=== PATIENT | male | born 1990 | race Two or more races ===

== ENCOUNTER 2025-02-28 11:52 | Inpatient (IN) | payer MEDICAID, SELFPAY ==
[2025-02-28] VITALS (8 sets, daily range): BP systolic 111–140; BP diastolic 45–82; PULSE 93–128; RESP 12–21; TEMP 36.2–39.1; O2SAT 93–100; BMI 62.4
--- NOTE | 2025-02-28 12:49 | XR_ITS ---
Examination: Tibia-Fibula, right , 2 views Technique: Tibia-fibula AP lateral 2 views Date and time of exam: February 28, 2025 1348 hours INDICATIONS: Right leg redness swelling and pain beginning 3 days ago. FINDINGS: Mild osteopenia. No fractures. No cortical bone destruction. No opaque foreign bodies IMPRESSION: No fracture or cortical bone destruction
--- NOTE | 2025-02-28 12:49 | XR_ITS ---
Examination: Duplex scan of the lower extremity, unilateral right complete Date and time of exam: February 28, 2025 1306 hours INDICATIONS: Right leg swelling and redness beginning 2 days ago Technique: Duplex scan of the extremity veins using B-mode/grayscale imaging and Doppler spectral analysis and color flow Attention is directed to internal echogenicity, compression and augmentation involving these veins, color flow assessment, spectral analysis Findings: Major deep venous structures in the extremity demonstrate normal course and caliber. There is no evidence of deep vein thrombosis. Normal color flow and spectral analysis Impression: Limited study secondary to patient's size No DVT demonstrated
--- NOTE | 2025-02-28 12:50 | PD.EDRME ---
Rapid Medical Screening Exam RME Arrival date/time: 02/28/25 11:52 34-year-old male presents to the emergency department today for complaints of right lower extremity pain and fever Chief Complaint: Fever Time Seen by Provider: 02/28/25 11:55 Vital signs: Vital Signs Temperature 102.3 F H 02/28/25 12:33 Pulse Rate 128 H 02/28/25 12:33 Respiratory Rate 21 H 02/28/25 12:33 Blood Pressure 111/54 L 02/28/25 12:33 Pulse Oximetry (%) 95 02/28/25 12:33 Oxygen Delivery Method Room Air 02/28/25 12:33
[2025-02-28] MEDS: ACETAMINOPHEN 500 MG TABLET 1000 MG PO (12:55)
[2025-02-28 13:14] LABS: Lactate (Lactic Acid) 2.6 mMol/L (0.4-2.0)
--- NOTE | 2025-02-28 13:28 | PC.NURSE ---
PT GIVEN WATER AND URINE CUP AND ASKED FOR SPECIMEN.
[2025-02-28 13:29] LABS: Basophils # (Auto) 0.1 Thou/mm3 (0.0-0.2); Basophils % (Auto) 0 % (0-2.5); Eosinophils # (Auto) 0.0 Thou/mm3 (0.0-0.5); Eosinophils % (Auto) 0 % (0-10); Hematocrit 43.4 % (41.0-53.0); Hemoglobin 14.7 g/dL (13.5-16.0); Immature Granulocytes Auto 0.32 Thou/mm3 (0.00-0.00); Lymphocytes # (Auto) 1.3 Thou/mm3 (1.0-4.8); Lymphocytes % (Auto) 5 % (10-50); Mean Corpuscular HGB Conc 33.9 g/dl (31.0-37.0); Mean Corpuscular Hemoglobin 28.9 pg (25.0-35.0); Mean Corpuscular Volume 85 fL (80-100); Monocytes # (Auto) 1.1 Thou/mm3 (0.0-0.8); Monocytes % (Auto) 4 % (0-12); Neutrophils # (Auto) 21.6 Thou/mm3 (1.8-7.7); Neutrophils % (Auto) 89 % (37-80); Nucleated Red Blood Cell # 0.00 Thou/mm3 (0.00-0.00); Nucleated Red Blood Cell % 0 /100 WBC (0); Platelet Count 185 Thou/mm3 (140-440); RDW Standard Deviation 45.8 fL (35.1-43.9); Red Blood Count 5.08 Miln/mm3 (4.50-5.90); White Blood Count 24.4 Thou/mm3 (3.8-10.6)
[2025-02-28 13:38] LABS: INR 1.2 (0.9-1.3); Partial Thromboplastin Time 25.8 Seconds (22.0-36.0); Prothrombin Time 12.7 Seconds (9.0-12.2)
[2025-02-28 13:43] LABS: Alanine Aminotransferase 33 U/L (10-49); Albumin, Serum 4.4 gm/dL (3.5-5.0); Albumin/Globulin Ratio 1.2 (1.2-2.2); Alkaline Phosphatase 59 U/L (46-116); Anion Gap 9 (7-16); Aspartate Amino Transferase 28 U/L (0-34); BUN/Creatinine Ratio 11 Ratio (12-20); Bilirubin,Total 0.6 mg/dL (0.3-1.2); Blood Urea Nitrogen 13 mg/dL (9-23); C-Reactive Protein 4.2 mg/dL (0.0-0.9); Calcium 9.5 mg/dL (8.3-10.6); Calcium (Corrected) 9.5 mg/dL (8.5-10.1); Carbon Dioxide 27.2 mMol/L (20.0-31.0); Chloride 98 mMol/L (98-107); Creatinine (Component) 1.2 mg/dL (0.6-1.3); Estimated Creatinine Clearance 158.0 mL/min (>60); Globulin 3.6 gm/dL (2.3-3.5); Glucose 98 mg/dL (74-106); Osmolality,Calculated 268 (275-295); Potassium 4.2 mMol/L (3.4-5.1); Procalcitonin 3.02 ng/ml (0.0-0.49); Sodium 134 mMol/L (136-145); Total Protein 8.0 gm/dL (5.7-8.2); eGFR > 60 See Note
--- NOTE | 2025-02-28 13:51 | XR_ITS ---
Examination: PA lateral chest 2 views TECHNIQUE: Upright PA lateral chest 2 views Date and time: February 28, 2025 1355 hours INDICATIONS: Sepsis fever shortness of breath today. FINDINGS: Normal heart size Lungs are clear. The osseous structures are intact IMPRESSION: No active disease
[2025-02-28 13:54] LABS: Sed Rate (ESR) 55 mm/hr (0-15)
[2025-02-28] MEDS: VANCOMYCIN/NS 1 GM IVPB 200 ML IV (14:25)
[2025-02-28] MEDS: PIPER/TAZO 3.375 GM PREMIX 3.375 GM/50 ML BAG IV (14:26)
[2025-02-28] MEDS: SODIUM CHLORIDE 0.9% 1000 ML 1,000 ML 999 ML IV ×2 (14:34→15:59)
--- NOTE | 2025-02-28 15:08 | PD.EDADULT ---
ED General RME/HPI General Chief complaint: Fever Stated complaint: FEVERS, PAIN FROM R) FOOT TO GROIN Time Seen by Provider: 02/28/25 11:55 Arrival date/time: 02/28/25 11:52 Limitations: no limitations RME / HPI RME / HPI narrative: 02/28/25 11:52 34-year-old male presents to the emergency department today for complaints of right lower extremity pain and fever DR. MAGALLON MAIN ED EVALUATION: 34 year old male presents to the Emergency Department accompanied by his mother with complaints of subjective fever at home as well as right lower extremity erythema and swelling. Patient states his symptoms started today. No cough, chest pain, any pain, allergies, or other symptoms at this time. PMHx: Denies any PMHx, surgeries, daily medications, or known allergies. No significant family history. Social Hx: Occasional cigarettes's smoker. No alcohol or substance use. Related Data Allergies Allergy/AdvReac Type Severity Reaction Status Date / Time No Known Allergies Allergy Verified 02/28/25 11:56 Review of Systems Review of Systems Systems Reviewed: All systems reviewed, normal except as documented Past Medical History Social History SMOKING STATUS: Current some day smoker SUBSTANCE USE: does not use ALCOHOL: Never ED Exam General Limitations: Present no limitations General appearance: Present alert, in no apparent distress and obese (BMI 62) Head Head exam: Present atraumatic, normocephalic and normal inspection Eye Eye exam: Present normal appearance, PERRL and EOMI ENT ENT exam: Present normal exam, normal oropharynx and mucous membranes moist Neck Neck exam: Present normal inspection, full ROM and trachea midline Chest Chest inspection: Present normal inspection and symmetric chest wall rise Respiratory Respiratory exam: Present normal lung sounds bilaterally Cardiovascular Cardiovascular exam: Present regular rate, normal rhythm and normal heart sounds Abdominal Exam Abdominal exam: Present soft and normal bowel sounds Extremities Exam Extremities exam: Present full ROM and other (Erythema and swelling just below the right knee, with venous stasis changes.) Back Exam Back exam: Present normal inspection and full ROM Neurological Exam Neurological exam: Present alert, oriented X3 and CN II-XII intact Psychiatric Psychiatric exam: Present normal affect and normal mood Skin Skin exam: Present warm, dry, intact and normal color Course Quality Measures Current suspected stage: sepsis Possible source: skin/soft tissue Blood cultures ordered: yes Antibiotic ordered: Yes Pertinent labs: 02/28/25 13:02 Lactic Acid 2.6 H mMol/L (0.4-2.0) Procalcitonin 3.02 H ng/ml (0.0-0.49) sepsis Orders Category Date Time Status COVID-19 Screening Questionnaire NOW Care 02/28/25 15:35 Active Decision to Admit X1 Care 02/28/25 15:35 Active Insert IV NOW Care 02/28/25 14:27 Active US venous doppler LE RT Stat Exams 02/28/25 12:49 Completed XR chest 2V Stat Exams 02/28/25 13:51 Completed XR tibia fibula RT 2V Stat Exams 02/28/25 12:49 Completed Blood Culture (Lab) Stat Lab 02/28/25 12:57 Received CBC Stat Lab 02/28/25 13:02 Completed CMP [Comprehensive Metabolic Panel] Stat Lab 02/28/25 13:02 Completed CRP [C-Reactive Protein] Stat Lab 02/28/25 13:02 Completed ESR [Sed Rate (ESR)] Stat Lab 02/28/25 13:02 Completed Lactic Acid [Lactate (Lactic Acid)] Stat Lab 02/28/25 13:02 Results PT [Prothrombin Time with INR] Stat Lab 02/28/25 13:02 Completed PTT [Partial Thromboplastin Time] Stat Lab 02/28/25 13:02 Completed Procalcitonin Stat Lab 02/28/25 13:02 Completed UA, C/S IF [Urinalysis, C/S if Indicated] Stat Lab 02/28/25 12:50 Ordered Acetaminophen Tab [Tylenol ES Tab] Med 02/28/25 12:50 Discontinued 1,000 mg PO X1 ONE Piper/Tazo 3.375 gm Premix [Zosyn] Med 02/28/25 14:08 Discontinued 3.375 gm in 50 ml IV X1 Sodium Chloride 0.9% 1000 ml [Ns] 1,000 ml Med 02/28/25 14:27 Discontinued IV 999 mls/hr Sodium Chloride 0.9% 1000 ml [Ns] 1,000 ml Med 02/28/25 15:33 Active IV 999 mls/hr Vancomycin/Ns 1 gm Ivpb 200 ml Med 02/28/25 14:08 Active IV X1 Vital Signs Vital signs: Vital Signs Temperature 102.3 F H 02/28/25 12:33 Pulse Rate 128 H 02/28/25 12:33 Respiratory Rate 21 H 02/28/25 12:33 Blood Pressure 111/54 L 02/28/25 12:33 Pulse Oximetry (%) 95 02/28/25 12:33 Oxygen Delivery Method Room Air 02/28/25 12:33 Discharge Plan Plan Patient Disposition: Admit Acute Care w/in Hospital Prescriptions/Referrals Referrals: No Primary/Family,Physician [Primary Care Provider] - In 1 week Problem List Clinical Impression: Sepsis, Cellulitis Patient/Caregiver Discharge Instructions Print Language: Guamanian Stand Alone Forms: Radha Award Info., Patient Portal Info Letter MDM Narrative [facility] hospital course: I, Krissy Way am scribing for and in the presence of Dr. Magallon. Patient will be admitted for sepsis and cellulitis. Clinical Information Provided by patient and parent (mother) Medical Records Reviewed None (no previous visits here) Meds/Rx Considered, not Ordered None Labs/Rad/Tests considered, not Ordered None Chronic Illness/Social Conditions Add or document further as needed: PMHx: Denies any PMHx, surgeries, daily medications, or known allergies. No significant family history. Social Hx: Occasional cigarettes's smoker. No alcohol or substance use. EKG EKG not done Lab Interpretation Labs: see narrative above Imaging Radiology reports / interpretation(s): Procedure(s): XR chest 2V Accession Number(s): [id number] cc: Lizbeth (MANUEL),Vito JACKSON; Gorge Hood MD; NO PRIMARY/FAMILY,PHYSICIAN~ Examination: PA lateral chest 2 views TECHNIQUE: Upright PA lateral chest 2 views Date and time: February 28, 2025 1355 hours INDICATIONS: Sepsis fever shortness of breath today. FINDINGS: Normal heart size Lungs are clear. The osseous structures are intact IMPRESSION: No active disease Dictated By: Gorge Hood MD Procedure(s): US venous doppler LE RT Accession Number(s): [id number] cc: Lizbeth BARTHOLOMEW),Vito JACKSON; Gorge Hood MD; NO PRIMARY/FAMILY,PHYSICIAN~ Examination: Duplex scan of the lower extremity, unilateral right complete Date and time of exam: February 28, 2025 1306 hours INDICATIONS: Right leg swelling and redness beginning 2 days ago Technique: Duplex scan of the extremity veins using B-mode/grayscale imaging and Doppler spectral analysis and color flow Attention is directed to internal echogenicity, compression and augmentation involving these veins, color flow assessment, spectral analysis Findings: Major deep venous structures in the extremity demonstrate normal course and caliber. There is no evidence of deep vein thrombosis. Normal color flow and spectral analysis Impression: Limited study secondary to patient's size No DVT demonstrated Dictated By: Gorge Hood MD Procedure(s): XR tibia fibula RT 2V Accession Number(s): [id number] cc: Lizbeth BARTHOLOMEW),Vito JACKSON; Gorge Hood MD; NO PRIMARY/FAMILY,PHYSICIAN~ Examination: Tibia-Fibula, right , 2 views Technique: Tibia-fibula AP lateral 2 views Date and time of exam: February 28, 2025 1348 hours INDICATIONS: Right leg redness swelling and pain beginning 3 days ago. FINDINGS: Mild osteopenia. No fractures. No cortical bone destruction. No opaque foreign bodies IMPRESSION: No fracture or cortical bone destruction Dictated By: Gorge Hood MD Medication Administration(s) Medication Administration History Vancomycin/Sodium Chloride (Vancomycin/Ns 1 Gm Ivpb) 200 mls @ 120 mls/hr IV X1 ONE Stop: 02/28/25 15:47 Last Admin: 02/28/25 14:25 Dose: 120 mls/hr Documented By: ÁNGEL Sodium Chloride (Ns) 1,000 mls @ 999 mls/hr IV .Q1H1M ONE Stop: 02/28/25 16:33 Discontinued Medications Acetaminophen (Acetaminophen 500 Mg Tablet) 1,000 mg PO X1 ONE Stop: 02/28/25 12:51 Last Admin: 02/28/25 12:55 Dose: 1,000 mg Documented By: MADELINE Piperacillin/Tazobactam/Dextrose (Zosyn) 3.375 gm in 50 mls @ 100 mls/hr IV X1 ONE Stop: 02/28/25 14:37 Last Admin: 02/28/25 14:26 Dose: 100 mls/hr Documented By: ÁNGEL Sodium Chloride (Ns) 1,000 mls @ 999 mls/hr IV .Q1H1M ONE Stop: 02/28/25 15:27 Last Admin: 02/28/25 14:34 Dose: 999 mls/hr Documented By: ÁNGEL Diagnosis Differential diagnosis: Cellulitis, DVT, febrile illness, venous stasis changes Most likely dx, and/or detailed dx discussion: Sepsis Cellulitis Dispositon Disposition: Admit
--- NOTE | 2025-02-28 15:58 | ESHP_ITS ---
<Statement entered by Yony Ford MD - 03/01/25 00:15> 34 year old obese male patient with significant medical history for obesity admitted for right lower extremity cellulites. Patient endorsing pain and subjective fever. Admission vitals significant for hypertension, tachycardia, tachypnea and fever. Labs significant for leukocytosis, elevated lactic acid, proCal, ESR and CRP. Doppler negative for DVT, x-ray of foot negative for bone destruction/osteomyelitis. Patient will be admitted for cellulites requiring IV antibiotics. I discussed with and supervised the planner intern physician involved in the care of this patient. Patient assessment and plan was discussed with entire medicine team, including my attending. I agree with the assessment and plan as documented by planner intern doctor. Patient care was discussed with my attending physician Dr.Lau Yony Ford, PGY-2 Documentation for date of: 02/28/25 HPI History of Present Illness Chief complaint: fever History of present illness: A 34-year-old male, morbidly obese with no significant past medical and surgical history presented to the hospital with chief complaints of fever and swelling in right lower extremity since 1 day. Patient was apparently normal 1 day ago, yesterday he went to work as usual and he noticed feeling hot and felt pain and swelling in the right lower extremity. Denies any trauma, recent immobilization. Denies that he had similar complaints in the past with his left lower extremity that subsided after antibiotic usage. Denies cough, shortness of breath, abdominal pain, nausea, vomitings, saturation, headache ED course: - Vitals at the time of admission are significant for pulse rate 128 bpm, respiratory rate 21/min, temperature 102.3 ?F - Labs are significant for WBC 24.4, sodium 134, ESR 55, CRP 4.2, procalcitonin 3.02, lactate 2.6 - Tibia/fibula x-ray showed no fracture, dislocation - Venous Doppler of right lower extremity is negative for DVT - Chest x-ray did not show any infiltrates Past medical history: Cellulitis of left lower extremity Past surgical history: Nonsignificant Social history: Occasional smoking cigarettes and alcohol intake, denies marijuana and other illicit drug abuse Allergies: NKDA Review of Systems Review of Systems Systems Reviewed: All systems reviewed, normal except as documented Exam Vital Signs Temp Pulse Resp BP Pulse Ox O2 Del Method 98.9 F 117 H 20 111/59 L 94 L Room Air 02/28/25 14:26 02/28/25 14:17 02/28/25 14:17 02/28/25 14:17 02/28/25 14:17 02/28/25 14:17 Narrative Exam General: Awake. obese HEENT: Normocephalic, atraumatic, mucous membranes moist. Heart: Regular rate and rhythm, no murmurs. Lungs: Clear to auscultation with no wheezing or crackles. Abdomen: Soft, nondistended, nontender, positive bowel sounds. ?No guarding or rebound tenderness. Neurologic: Alert and oriented x3, no gross neurological deficit, and patient able to move all 4 extremities. Extremities: Right lower extremity swelling with erythema and localised rise of temperature noted. B/l chronic venous stasis noted with induration. Skin: No rash or ecchymoses. Results: Labs 03/01/25 04:24 03/01/25 04:24 Labs: Short CBC 02/28/25 Range/Units 13:02 WBC 24.4 H (3.8-10.6) Thou/mm3 Hgb 14.7 (13.5-16.0) g/dL Hct 43.4 (41.0-53.0) % Plt Count 185 (140-440) Thou/mm3 BMP 02/28/25 13:02 Sodium 134 L Potassium 4.2 Chloride 98 Carbon Dioxide 27.2 BUN 13 Creatinine 1.2 Glucose 98 Calcium 9.5 Liver Function 02/28/25 Range/Units 13:02 Total Bilirubin 0.6 (0.3-1.2) mg/dL AST 28 (0-34) U/L ALT 33 (10-49) U/L Alkaline Phosphatase 59 (46-116) U/L Albumin 4.4 (3.5-5.0) gm/dL Quality Measures Quality Measures sepsis Current suspected stage: sepsis Possible source: skin/soft tissue Blood cultures ordered: yes Antibiotic ordered: Yes Medications Home Medications and Allergies Home Medications ?Medication ?Instructions ?Recorded ?Confirmed ?Type No Known Home Medications 03/01/2502/06 History Allergies Allergy/AdvReac Type Severity Reaction Status Date / Time No Known Allergies Allergy Verified 02/28/25 11:56 Visit Medications Acetaminophen (Acetaminophen 325 Mg Tablet) 650 mg PO Q6H PRN PRN Reason: Fever >101.5 Stop: 03/30/25 15:52 Enoxaparin Sodium (Enoxaparin Sod Inj 40 Mg/0.4 Ml Syringe) 60 mg SC QDAY AYALA Stop: 03/15/25 08:59 Sodium Chloride (Ns) 1,000 mls @ 999 mls/hr IV .Q1H1M ONE Stop: 02/28/25 16:33 Ondansetron HCl (Ondansetron Inj 2 Mg/Ml Inj 2 Ml) 4 mg IVP Q6H PRN; Protocol PRN Reason: NAUSEA OR VOMITING Stop: 03/30/25 15:52 Pantoprazole Sodium (Pantoprazole 40 Mg Tablet) 40 mg PO QDAY AYALA Stop: 03/31/25 08:59 Discontinued Medications Acetaminophen (Acetaminophen 500 Mg Tablet) 1,000 mg PO X1 ONE Stop: 02/28/25 12:51 Last Admin: 02/28/25 12:55 Dose: 1,000 mg Piperacillin/Tazobactam/Dextrose (Zosyn) 3.375 gm in 50 mls @ 100 mls/hr IV X1 ONE Stop: 02/28/25 14:37 Last Admin: 02/28/25 14:26 Dose: 100 mls/hr Vancomycin/Sodium Chloride (Vancomycin/Ns 1 Gm Ivpb) 200 mls @ 120 mls/hr IV X1 ONE Stop: 02/28/25 15:47 Last Admin: 02/28/25 14:25 Dose: 120 mls/hr Sodium Chloride (Ns) 1,000 mls @ 999 mls/hr IV .Q1H1M ONE Stop: 02/28/25 15:27 Last Admin: 02/28/25 14:34 Dose: 999 mls/hr Assessment & Plan Plan A 34-year-old male, morbidly obese with no significant past medical and surgical history presented to the hospital with chief complaints of fever and swelling in right lower extremity since 1 day and admitted for sepsis 2/2 Right lower extremity cellulitis # Sepsis secondary to # Right lower extremity cellulitis -Patient presented to the hospital with chief complaints of fever and right lower extremity swelling since 1 day - Vitals at the time of admission are significant for pulse rate 128, temperature 102.3, respiratory rate 21 + cellulitis = fits into sepsis - Labs are significant for WBC 24.4, CRP 4.2, ESR 55, procalcitonin 3.02, lactate 2.6 - Venous Doppler showed no evidence of DVT - Blood cultures are sent Plan - Started on ceftriaxone 1 g IV daily and doxycycline 100 Mg p.o. twice daily - Will recommend leg and elevation # ?JENY/OHS # Morbid obesity - Patient is falling asleep while giving history - Patient also endorsed that he had similar complaints for which he was supposed to get a sleep study, pending Plan - CPAP overnight Hospital Maintenance: Dispo: medtele DVT ppx: Enoxaparin GI ppx: Protonix Diet: Regular IV lines: Peripheral Code status: Full Patient plan of care was discussed with the attending physician, Dr. Aceves and senior resident Dr. Liliana Stoll, PGY1 Attending Provider Attestation/Addendum I, Obdulia Aceves, DO, attest that I was physically present for the dickson portions of the service and evaluated the patient with the resident and I reviewed and discussed the case with the resident and agree with the resident's findings and plans of care as documented above Patient is a 34-year-old male with BMI of 62 and no known past medical history who presents to the ED due to concern of fever, chills and swelling of right lower extremity. Patient states that he was at work when all of a sudden he felt very hot and started having shaking chills. Patient states he had a previous episode in the past involving his right lower extremity. He denies any breaks in skin, bites or cuts on his foot. Right lower extremity is very edematous, erythematous and tender to palpation. No blisters or breaks in skin noted. Patient appears to have some poor hygiene with fungal infection of his nails. He denies any shortness of breath, chest pain, nausea, vomiting, diarrhea, dysuria otherwise. Patient states that he has pain when he gets fevers due to cramps. Will start patient on IV fluids and admit to med/telemetry due to sepsis secondary to cellulitis. Will start on doxycycline and Rocephin and obtain blood cultures.
[2025-02-28 16:11] LABS: Reflex Lactate? Y
[2025-02-28 16:47] LABS: Lactic Acid, 3 HR 1.2 mMol/L (0.4-2.0)
[2025-02-28] MEDS: cefTRIAXone/D5w 1gm IV premix 1 GM/50 ML BAG IV (16:49)
--- NOTE | 2025-02-28 16:54 | PC.NURSE ---
PATIENT WAS 87% ON ROOM AIR WHEN SLEEPING. PATIENT PLACED ON 3L OXYGEN VIA NASAL CANNULA PATIENT SATURATING UP TO 99%.
--- NOTE | 2025-02-28 17:36 | PC.NURSE ---
REPORT CALLED TO SHEY CENTENO. NO FURTHER QUESTIONS ASKED. PATIENT WILL BE TAKEN UPSTAIRS
--- NOTE | 2025-02-28 17:55 | PC.NURSE ---
Patient arrived on floor AAO x 3.
--- NOTE | 2025-02-28 18:35 | PC.NURSE ---
I will hand off patient assessment and med rec to shift mgr nurse
[2025-02-28] MEDS: DOXYCYCLINE 100 MG TABLET PO (20:25)
[2025-03-01] VITALS (12 sets, daily range): BP systolic 119–161; BP diastolic 74–97; PULSE 83–116; RESP 14–21; TEMP 36.1–38.6; O2SAT 95–100
--- NOTE | 2025-03-01 03:59 | EKG_ITS ---
[facility] Test Date: 2025-03-01 Pat Name: ACE ALANIS [facility] Academic Hospitalist: DELMIS : 1990 Requested By: Eduardo Araujo Order Number: [id number] Reading MD: Eduardo Araujo Measurements Intervals [place] Rate: 83 P: 8 MO: 143 QRS: 85 QRSD: 109 T: 46 QT: 345 QTc: 407 Interpretive Statements SINUS RHYTHM WITH MARKED SINUS ARRHYTHMIA No previous ECG available for comparison /store/S0/[id number]
--- NOTE | 2025-03-01 04:01 | PC.NURSE ---
JESSY Saba called SHEY Magdaleno saying the patient's traffic monitor specialist is showing peaked T waves. SHEY Magdaleno notified Dr. Paul and Dr. Paul instructed RN to let lab know to draw AM labs STAT and Dr. Paul will put an order in for an EKG.
[2025-03-01 05:15] LABS: Basophils # (Auto) 0.0 Thou/mm3 (0.0-0.2); Basophils % (Auto) 0 % (0-2.5); Eosinophils # (Auto) 0.1 Thou/mm3 (0.0-0.5); Eosinophils % (Auto) 0 % (0-10); Hematocrit 43.9 % (41.0-53.0); Hemoglobin 14.5 g/dL (13.5-16.0); Immature Granulocytes Auto 0.14 Thou/mm3 (0.00-0.00); Lymphocytes # (Auto) 0.7 Thou/mm3 (1.0-4.8); Lymphocytes % (Auto) 4 % (10-50); Mean Corpuscular HGB Conc 33.0 g/dl (31.0-37.0); Mean Corpuscular Hemoglobin 29.1 pg (25.0-35.0); Mean Corpuscular Volume 88 fL (80-100); Monocytes # (Auto) 0.5 Thou/mm3 (0.0-0.8); Monocytes % (Auto) 3 % (0-12); Neutrophils # (Auto) 17.7 Thou/mm3 (1.8-7.7); Neutrophils % (Auto) 92 % (37-80); Nucleated Red Blood Cell # 0.00 Thou/mm3 (0.00-0.00); Nucleated Red Blood Cell % 0 /100 WBC (0); Platelet Count 188 Thou/mm3 (140-440); RDW Standard Deviation 49.0 fL (35.1-43.9); Red Blood Count 4.99 Miln/mm3 (4.50-5.90); White Blood Count 19.2 Thou/mm3 (3.8-10.6)
[2025-03-01 05:35] LABS: Anion Gap 7 (7-16); BUN/Creatinine Ratio 11 Ratio (12-20); Blood Urea Nitrogen 11 mg/dL (9-23); Calcium 8.9 mg/dL (8.3-10.6); Carbon Dioxide 28.1 mMol/L (20.0-31.0); Chloride 100 mMol/L (98-107); Creatinine (Component) 1.0 mg/dL (0.6-1.3); Estimated Creatinine Clearance 189.6 mL/min (>60); Glucose 87 mg/dL (74-106); Osmolality,Calculated 268 (275-295); Potassium 4.7 mMol/L (3.4-5.1); Sodium 135 mMol/L (136-145); Thyroid Stimulating Hormone 0.83 uIU/mL (0.55-4.78); eGFR > 60 See Note
[2025-03-01] MEDS: PANTOPRAZOLE 40 MG TABLET PO (09:30)
[2025-03-01] MEDS: cefTRIAXone/D5w 1gm IV premix 1 GM/50 ML BAG IV (09:30)
[2025-03-01] MEDS: DOXYCYCLINE 100 MG TABLET PO ×2 (09:30→21:12)
[2025-03-01] MEDS: ENOXAPARIN SOD INJ 60 MG/0.6 ML SYRINGE SC (09:30)
[2025-03-01] MEDS: ACETAMINOPHEN 325 MG TABLET 650 MG PO ×2 (11:26→17:59)
--- NOTE | 2025-03-01 14:55 | PC.SS ---
Patient is alert/oriented. Patient was admitted for fever. Patient resides with mother. He is independent with ADL's. Patient does not use any DME. Patient states he is currently employed. Pharmacy: [facility]. PCP: Elly Garcia in [place]. Last appt. was last year. Patient is open to following up at the [facility]. Patient verbalized that his mother, Sana, was the alt medical decision maker. Discharge plan is to return home. [facility] medical decision maker: Mother, Sana, d/c plan: home
--- NOTE | 2025-03-01 15:43 | ESPR_ITS ---
<Statement entered by Yony Ford MD - 03/02/25 07:12> I discussed with and supervised the credit intern physician involved in the care of this patient. Patient assessment and plan was discussed with entire medicine team, including my attending. I agree with the assessment and plan as documented by credit intern doctor. Patient care was discussed with my attending physician Dr. Yola Ford, PGY-2 Documentation for date of: 03/01/25 Subjective Subjective Interval history: Patient is seen and examined at bedside No acute overnight events. Patient is not able to tolerate CPAP overnight Patient endorsed that he is feeling better from yesterday but on physical examination the erythema seems to be worsened Will continue antibiotics for 1 more day intravenously and will monitor for now If the erythema is going down will discharge tomorrow Exam Vital Signs Temp Pulse Resp BP Pulse Ox O2 Del Method O2 Flow Rate 99.5 F 105 H 18 131/74 H 98 Nasal Cannula 2 03/01/25 12:27 03/01/25 11:47 03/01/25 11:47 03/01/25 11:47 03/01/25 11:47 03/01/25 11:47 03/01/25 11:47 FiO2 30 02/28/25 20:08 Narrative Exam General: Awake. obese HEENT: Normocephalic, atraumatic, mucous membranes moist. Heart: Regular rate and rhythm, no murmurs. Lungs: Clear to auscultation with no wheezing or crackles. Abdomen: Soft, nondistended, nontender, positive bowel sounds. ?No guarding or rebound tenderness. Neurologic: Alert and oriented x3, no gross neurological deficit, and patient able to move all 4 extremities. Extremities: Right lower extremity swelling with erythema and localised rise of temperature noted. B/l chronic venous stasis noted with induration. Skin: No rash or ecchymoses. Objective Labs 03/02/25 04:41 03/02/25 04:41 Labs: Laboratory Results - last 24 hr 02/28/25 03/01/25 16:40 04:24 WBC 19.2 H D RBC 4.99 Hgb 14.5 Hct 43.9 MCV 88 MCH 29.1 MCHC 33.0 RDW Std Deviation 49.0 H Plt Count 188 Neut % (Auto) 92 H Lymph % (Auto) 4 L [place] % (Auto) 3 Eos % (Auto) 0 Baso % (Auto) 0 Neut # (Auto) 17.7 H Lymph # (Auto) 0.7 L [place] # (Auto) 0.5 Eos # (Auto) 0.1 Baso # (Auto) 0.0 Immature Gran # (Auto) 0.14 H Absolute Nucleated RBC 0.00 Immature Gran % 1 H Nucleated RBC % 0 Sodium 135 L Potassium 4.7 D Chloride 100 Carbon Dioxide 28.1 Anion Gap 7 BUN 11 Creatinine 1.0 Estim Creat Clear Calc 189.6 eGFR > 60 BUN/Creatinine Ratio 11 L Glucose 87 Calculated Osmolality 268 L Lactic Acid 1.2 Calcium 8.9 TSH 0.83 Quality Measures Quality Measures sepsis Current suspected stage: ruled out Possible source: skin/soft tissue Blood cultures ordered: yes Antibiotic ordered: Yes Assessment & Plan Assessment Current Active Medications: Generic Name Dose Route Start Last Admin Trade Name Freq PRN Reason Stop Dose Admin Acetaminophen 650 mg 02/28/25 15:53 03/01/25 11:26 Acetaminophen 325 Mg Tablet PO 03/30/25 15:52 650 mg Q6H PRN Administration Fever >100.4 Doxycycline Hyclate 100 mg 02/28/25 21:00 03/01/25 09:30 Doxycycline 100 Mg Tablet PO 03/07/25 20:59 100 mg BID AYALA Administration Enoxaparin Sodium 60 mg 03/01/25 09:00 03/01/25 09:30 Enoxaparin Sod Inj 60 Mg/0.6 Ml Syringe SC 03/15/25 08:59 60 mg QDAY AYALA Administration Ceftriaxone Sodium/Dextrose 1 gm in 50 mls @ 100 mls/hr 02/28/25 15:59 03/01/25 09:30 Rocephin/D5w 1gm Iv Premix IV 03/07/25 15:58 100 mls/hr QDAY AYALA Administration Ondansetron HCl 4 mg 02/28/25 15:53 Ondansetron Inj 2 Mg/Ml Inj 2 Ml IVP 03/30/25 15:52 Q6H PRN NAUSEA OR VOMITING Protocol Pantoprazole Sodium 40 mg 03/01/25 09:00 03/01/25 09:30 Pantoprazole 40 Mg Tablet PO 03/31/25 08:59 40 mg QDAY AYALA Administration Plan A 34-year-old male, morbidly obese with no significant past medical and surgical history presented to the hospital with chief complaints of fever and swelling in right lower extremity since 1 day and admitted for sepsis 2/2 Right lower extremity cellulitis # Sepsis, resolved secondary to # Right lower extremity cellulitis - Patient presented to the hospital with chief complaints of fever and right lower extremity swelling since 1 day - Vitals at the time of admission are significant for pulse rate 128, temperature 102.3, respiratory rate 21 + cellulitis = fits into sepsis - Labs are significant for WBC 24.4, CRP 4.2, ESR 55, procalcitonin 3.02, lactate 2.6 - Venous Doppler showed no evidence of DVT - Blood cultures - no growth after 24hrs Plan - Started on ceftriaxone 1 g IV daily and doxycycline 100 Mg p.o. twice daily - Will recommend leg and elevation # ?JENY/OHS # Morbid obesity - Patient is falling asleep while giving history - Patient also endorsed that he had similar complaints for which he was supposed to get a sleep study, pending Plan - CPAP overnight, but patient refused it - Explained about the risks and benefits, patient understood Hospital Maintenance: Dispo: medtele DVT ppx: Enoxaparin GI ppx: Protonix Diet: Regular IV lines: Peripheral Code status: Full Patient plan of care was discussed with the attending physician, Dr. Aceves and senior resident Dr. Liliana Stoll, PGY1 Attending Provider Attestation/Addendum I, Obdulia Aceves, , attest that I was physically present for the dickson portions of the service and evaluated the patient with the resident and I reviewed and discussed the case with the resident and agree with the resident's findings and plans of care as documented above Patient seen and evaluated this a.m. No acute events overnight. However, patient was febrile at time of evaluation. Patient complaining of cramping due to fevers and chills. Right lower extremity appears more erythematous and edematous today. However, less tender to palpation. Will continue with IV fluids and IV antibiotics at this time
[2025-03-01] MEDS: SODIUM CHLORIDE 0.9% 1000 ML 1,000 ML 125 ML IV (17:50)
[2025-03-02] VITALS (11 sets, daily range): BP systolic 115–146; BP diastolic 57–82; PULSE 77–106; RESP 18–24; TEMP 36.2–38.9; O2SAT 93–100
[2025-03-02] MEDS: SODIUM CHLORIDE 0.9% 1000 ML 1,000 ML 125 ML IV ×3 (02:47→23:57)
[2025-03-02] MEDS: ACETAMINOPHEN 325 MG TABLET 650 MG PO ×2 (02:48→16:17)
[2025-03-02 05:51] LABS: Collection Type, Urine Clean Catch
[2025-03-02 05:57] LABS: Basophils # (Auto) 0.0 Thou/mm3 (0.0-0.2); Basophils % (Auto) 0 % (0-2.5); Eosinophils # (Auto) 0.2 Thou/mm3 (0.0-0.5); Eosinophils % (Auto) 2 % (0-10); Hematocrit 39.7 % (41.0-53.0); Hemoglobin 12.7 g/dL (13.5-16.0); Immature Granulocytes Auto 0.24 Thou/mm3 (0.00-0.00); Lymphocytes # (Auto) 1.8 Thou/mm3 (1.0-4.8); Lymphocytes % (Auto) 12 % (10-50); Mean Corpuscular HGB Conc 32.0 g/dl (31.0-37.0); Mean Corpuscular Hemoglobin 29.0 pg (25.0-35.0); Mean Corpuscular Volume 91 fL (80-100); Monocytes # (Auto) 0.7 Thou/mm3 (0.0-0.8); Monocytes % (Auto) 5 % (0-12); Neutrophils # (Auto) 12.4 Thou/mm3 (1.8-7.7); Neutrophils % (Auto) 80 % (37-80); Nucleated Red Blood Cell # 0.00 Thou/mm3 (0.00-0.00); Nucleated Red Blood Cell % 0 /100 WBC (0); Platelet Count 184 Thou/mm3 (140-440); RDW Standard Deviation 50.8 fL (35.1-43.9); Red Blood Count 4.38 Miln/mm3 (4.50-5.90); White Blood Count 15.4 Thou/mm3 (3.8-10.6)
[2025-03-02 06:14] LABS: Bilirubin,Urine Negative (Negative); Blood,Urine Negative (Negative); Clarity,Urine Clear (Clear/Hazy); Color,Urine Yellow (Lt Yel-Yel); Culture Indicated,Urine Not Indicated; Glucose, Urine Negative (Negative); Ketones,Urine Negative (Negative); Leukocyte Esterase,Urine Negative (Negative); Nitrite,Urine Negative (Negative); PH,Urine 6.5 (5.0-7.0); Protein,Urine Trace (Neg - Trace); RBC,Urine 1 /hpf (0-3); Specific Gravity,Urine 1.023 (1.001-1.035); Squamous Epithelial Cell,Urine < 1 /hpf (0-5); Urobilinogen,Urine 6.0 mg/dL (0.0-1.0); WBC,Urine 3 /hpf (0-5)
[2025-03-02 06:32] LABS: Anion Gap 7 (7-16); BUN/Creatinine Ratio 11 Ratio (12-20); Blood Urea Nitrogen 9 mg/dL (9-23); Calcium 8.6 mg/dL (8.3-10.6); Carbon Dioxide 28.2 mMol/L (20.0-31.0); Chloride 102 mMol/L (98-107); Creatinine (Component) 0.8 mg/dL (0.6-1.3); Estimated Creatinine Clearance 237.0 mL/min (>60); Glucose 107 mg/dL (74-106); Osmolality,Calculated 272 (275-295); Potassium 4.2 mMol/L (3.4-5.1); Sodium 137 mMol/L (136-145); eGFR > 60 See Note
[2025-03-02 06:45] LABS: Glucose Estimated Average 114 mg/dL (80-131); Hemoglobin A1C 5.6 % Hgb (4.8-6.0)
[2025-03-02] MEDS: DOXYCYCLINE 100 MG TABLET PO ×2 (08:25→21:04)
[2025-03-02] MEDS: ENOXAPARIN SOD INJ 60 MG/0.6 ML SYRINGE SC ×2 (08:25→21:08)
[2025-03-02] MEDS: PANTOPRAZOLE 40 MG TABLET PO (08:25)
[2025-03-02] MEDS: cefTRIAXone/D5w 1gm IV premix 1 GM/50 ML BAG IV (08:26)
--- NOTE | 2025-03-02 14:46 | PC.SS ---
Rounding note: patient will receive another day of IV abx and possible d/c tomorrow back home.
--- NOTE | 2025-03-02 17:57 | XR_ITS ---
Examination: CT abdomen and pelvis without contrast. Coronal 3-D reconstructions. Sagittal 2-D reconstructions. Date and time of exam:March 02, 2025 1820 hours INDICATIONS: Recurrent fever and abdominal pain today CTDI: vol (mGy): 45.2. DLP: (mGycm): 878. Technique: Axial images of the abdomen have been obtained, 3 mm slice thickness Intravenous contrast material has not been administered. Low dose protocols were performed. One or more of the following dose reduction techniques were used; automated exposure control, adjustment of the mA and/or KV according to patient size, use of iterative reconstruction technique. Findings: No focal liver or splenic lesions Liver is irregular in contour and enlarged, 23 cm Contracted gallbladder No pancreatic mass 4 mm nonobstructing right renal calculus Aorta normal size Subcentimeter left lateral periaortic lymph nodes to 4 mm 12 mm fat-containing umbilical hernia Normal appendix No bowel obstruction No diverticulitis No prostatomegaly Contracted urinary bladder Moderate disc narrowing L5-S1 IMPRESSION: Hepatomegaly 23 cm, liver is irregular in contour as suspected primary hepatocellular disease 4 mm nonobstructing right renal calculus Normal appendix No bowel obstruction diverticulitis or free air
--- NOTE | 2025-03-02 17:57 | XR_ITS ---
Examination: CT right lower leg, without contrast. 2-D sagittal reconstructions. 2-D coronal reconstructions. 3-D reconstructions. Date and time of exam:March 02, 2025, 1827 hours INDICATIONS: Right lower leg swelling and pain beginning 3 days ago CTDI: vol (mGy):11.4 DLP: (mGycm):815 Technique: Multiple 1.25 mm axial sections of the right lower leg without intravenous contrast have been obtained. 2-D sagittal and coronal reconstructions have been obtained. 3-D reconstructions have been obtained. Low dose protocols were performed. One or more of the following dose reduction techniques were used; automated exposure control, adjustment of the mA and/or KV according to patient size, use of iterative reconstruction technique. Findings: Edema in the subcutaneous tissues surrounding the lower femur, the knee and especially the tibia-fibula with skin thickening, cellulitis pattern No soft tissue abscess No cortical bone destruction involving the tibia, fibula or distal femur Negative for osteomyelitis IMPRESSION: Prominent cellulitis involving the right lower leg Negative for osteomyelitis Negative for soft tissue abscess
--- NOTE | 2025-03-02 18:07 | ESPR_ITS ---
<Statement entered by Yony Ford MD - 03/03/25 07:16> I discussed with and supervised the chemistry intern physician involved in the care of this patient. Patient assessment and plan was discussed with entire medicine team, including my attending. I agree with the assessment and plan as documented by chemistry intern doctor. Patient care was discussed with my attending physician Dr. Yola Ford, PGY-2 Documentation for date of: 03/02/25 Subjective Subjective Interval history: Patient is seen and examined at bedside Complaining of pain in the right lower extremity. Overnight patient was found to have febrile episodes Blood cultures came back negative after 48 hours. Patient also found to have febrile episodes in the day. CT abdomen/pelvis and imaging of right lower extremity is ordered to look for any other source of infection Will follow-up with the results Exam Vital Signs Temp Pulse Resp BP Pulse Ox O2 Del Method O2 Flow Rate 99.8 F 98 20 137/69 H 100 Nasal Cannula 3 03/02/25 17:17 03/02/25 16:00 03/02/25 16:00 03/02/25 16:00 03/02/25 16:00 03/02/25 16:00 03/02/25 16:00 FiO2 30 02/28/25 20:08 Narrative Exam General: Awake. obese HEENT: Normocephalic, atraumatic, mucous membranes moist. Heart: Regular rate and rhythm, no murmurs. Lungs: Clear to auscultation with no wheezing or crackles. Abdomen: Soft, nondistended, nontender, positive bowel sounds. ?No guarding or rebound tenderness. Neurologic: Alert and oriented x3, no gross neurological deficit, and patient able to move all 4 extremities. Extremities: Right lower extremity swelling with erythema and localised rise of temperature noted. B/l chronic venous stasis noted with induration. Skin: No rash or ecchymoses. Objective Labs 03/03/25 04:40 03/03/25 04:40 Labs: Laboratory Results - last 24 hr 03/02/25 03/02/25 03:00 04:41 WBC 15.4 H RBC 4.38 L Hgb 12.7 L Hct 39.7 L MCV 91 MCH 29.0 MCHC 32.0 RDW Std Deviation 50.8 H Plt Count 184 Neut % (Auto) 80 Lymph % (Auto) 12 [place] % (Auto) 5 Eos % (Auto) 2 Baso % (Auto) 0 Neut # (Auto) 12.4 H Lymph # (Auto) 1.8 [place] # (Auto) 0.7 Eos # (Auto) 0.2 Baso # (Auto) 0.0 Immature Gran # (Auto) 0.24 H Absolute Nucleated RBC 0.00 Immature Gran % 2 H Nucleated RBC % 0 Sodium 137 Potassium 4.2 D Chloride 102 Carbon Dioxide 28.2 Anion Gap 7 BUN 9 Creatinine 0.8 Estim Creat Clear Calc 237.0 eGFR > 60 BUN/Creatinine Ratio 11 L Glucose [address] Glu mg/dL 114 Hemoglobin A1c 5.6 Calculated Osmolality 272 L Calcium 8.6 Ur Collection Type Clean Catch Urine Color Yellow Urine Clarity Clear Urine pH 6.5 Ur Specific [place] 1.023 Urine Protein Trace Urine Glucose (UA) Negative Urine Ketones Negative Urine Blood Negative Urine Nitrite Negative Urine Bilirubin Negative Urine Urobilinogen (Auto) 6.0 Ur Leukocyte Esterase Negative Urine RBC 1 Urine WBC 3 Ur Squamous Epith Cells < 1 Urine Bacteria None Ur Culture Indicated? Not Indicated Quality Measures Quality Measures sepsis Current suspected stage: ruled out Possible source: skin/soft tissue Blood cultures ordered: yes Antibiotic ordered: Yes Assessment & Plan Assessment Current Active Medications: Generic Name Dose Route Start Last Admin Trade Name Freq PRN Reason Stop Dose Admin Acetaminophen 650 mg 02/28/25 15:53 03/02/25 16:17 Acetaminophen 325 Mg Tablet PO 03/30/25 15:52 650 mg Q6H PRN Administration Fever >100.4 Doxycycline Hyclate 100 mg 02/28/25 21:00 03/02/25 08:25 Doxycycline 100 Mg Tablet PO 03/07/25 20:59 100 mg BID AYALA Administration Enoxaparin Sodium 60 mg 03/02/25 21:00 Enoxaparin Sod Inj 60 Mg/0.6 Ml Syringe SC 03/16/25 20:59 BID AYALA Ceftriaxone Sodium/Dextrose 1 gm in 50 mls @ 100 mls/hr 02/28/25 15:59 03/02/25 08:26 Rocephin/D5w 1gm Iv Premix IV 03/07/25 15:58 100 mls/hr QDAY AYALA Administration Sodium Chloride 1,000 mls @ 125 mls/hr 03/01/25 17:35 03/02/25 14:49 Ns IV 03/31/25 17:34 125 mls/hr .Q8H AYALA Administration Ondansetron HCl 4 mg 02/28/25 15:53 Ondansetron Inj 2 Mg/Ml Inj 2 Ml IVP 03/30/25 15:52 Q6H PRN NAUSEA OR VOMITING Protocol Pantoprazole Sodium 40 mg 03/01/25 09:00 03/02/25 08:25 Pantoprazole 40 Mg Tablet PO 03/31/25 08:59 40 mg QDAY AYALA Administration Plan A 34-year-old male, morbidly obese with no significant past medical and surgical history presented to the hospital with chief complaints of fever and swelling in right lower extremity since 1 day and admitted for sepsis 2/2 Right lower extremity cellulitis # Sepsis, resolved secondary to # Right lower extremity cellulitis - Patient presented to the hospital with chief complaints of fever and right lower extremity swelling since 1 day - Vitals at the time of admission are significant for pulse rate 128, temperature 102.3, respiratory rate 21 + cellulitis = fits into sepsis - Labs are significant for WBC 24.4, CRP 4.2, ESR 55, procalcitonin 3.02, lactate 2.6 - Venous Doppler showed no evidence of DVT - Blood cultures - no growth after 48hrs Plan - Started on ceftriaxone 1 g IV daily and doxycycline 100 Mg p.o. twice daily - Will recommend leg and elevation - Ordered CT abdomen and pelvis as patient is having febrile episodes and his blood cultures came back negative after 48 hours, will follow-up with the results # ?JENY/OHS # Morbid obesity - Patient is falling asleep while giving history - Patient also endorsed that he had similar complaints for which he was supposed to get a sleep study, pending Plan - CPAP overnight, but patient refused it - Explained about the risks and benefits, patient understood Hospital Maintenance: Dispo: medtele DVT ppx: Enoxaparin GI ppx: Protonix Diet: Regular IV lines: Peripheral Code status: Full Patient plan of care was discussed with the attending physician, Dr. Aceves and senior resident Dr. Liliana Stoll, PGY1 Attending Provider Attestation/Addendum Fanta, Obdulia Aceves, DO, attest that I was physically present for the dickson portions of the service and evaluated the patient with the resident and I reviewed and discussed the case with the resident and agree with the resident's findings and plans of care as documented above Patient seen and evaluated this a.m. He continues to have some redness, edema and erythema of his right lower extremity. No blistering, crepitus or open wounds noted on lower extremity.patient otherwise denies any chest pain, shortness of breath, abdominal pain cellulitis is limited to his distal lower extremity below his knee. No lymphadenopathy palpated. Patient continues to have fevers overnight. Will continue with IV fluids and IV antibiotics at this time. Will repeat blood cultures. Will order CT abdomen pelvis and lower extremity CT to rule out any other causes of infection.. He only endorses pain when he has fevers causing cramping in his lower extremity.
[2025-03-03] VITALS (9 sets, daily range): BP systolic 139–165; BP diastolic 90–98; PULSE 57–101; RESP 16–23; TEMP 36.1–37.1; O2SAT 92–96
[2025-03-03] MEDS: ACETAMINOPHEN 325 MG TABLET 650 MG PO ×2 (00:08→09:07)
[2025-03-03 05:33] LABS: Anion Gap 7 (7-16); BUN/Creatinine Ratio 10 Ratio (12-20); Blood Urea Nitrogen 8 mg/dL (9-23); Calcium 9.2 mg/dL (8.3-10.6); Carbon Dioxide 29.3 mMol/L (20.0-31.0); Chloride 99 mMol/L (98-107); Creatinine (Component) 0.8 mg/dL (0.6-1.3); Estimated Creatinine Clearance 237.0 mL/min (>60); Glucose 108 mg/dL (74-106); Osmolality,Calculated 269 (275-295); Potassium 4.2 mMol/L (3.4-5.1); Sodium 135 mMol/L (136-145); eGFR > 60 See Note
[2025-03-03 06:16] LABS: Basophils # (Auto) 0.0 Thou/mm3 (0.0-0.2); Basophils % (Auto) 0 % (0-2.5); Eosinophils # (Auto) 0.3 Thou/mm3 (0.0-0.5); Eosinophils % (Auto) 2 % (0-10); Hematocrit 38.7 % (41.0-53.0); Hemoglobin 12.3 g/dL (13.5-16.0); Immature Granulocytes Auto 0.15 Thou/mm3 (0.00-0.00); Lymphocytes # (Auto) 2.8 Thou/mm3 (1.0-4.8); Lymphocytes % (Auto) 19 % (10-50); Mean Corpuscular HGB Conc 31.8 g/dl (31.0-37.0); Mean Corpuscular Hemoglobin 28.9 pg (25.0-35.0); Mean Corpuscular Volume 91 fL (80-100); Monocytes # (Auto) 1.4 Thou/mm3 (0.0-0.8); Monocytes % (Auto) 10 % (0-12); Neutrophils # (Auto) 9.9 Thou/mm3 (1.8-7.7); Neutrophils % (Auto) 68 % (37-80); Nucleated Red Blood Cell # 0.03 Thou/mm3 (0.00-0.00); Nucleated Red Blood Cell % 0 /100 WBC (0); Platelet Count 203 Thou/mm3 (140-440); RDW Standard Deviation 52.0 fL (35.1-43.9); Red Blood Count 4.25 Miln/mm3 (4.50-5.90); White Blood Count 14.5 Thou/mm3 (3.8-10.6)
[2025-03-03] MEDS: PANTOPRAZOLE 40 MG TABLET PO (08:45)
[2025-03-03] MEDS: ENOXAPARIN SOD INJ 60 MG/0.6 ML SYRINGE SC (08:45)
[2025-03-03] MEDS: DOXYCYCLINE 100 MG TABLET PO (08:45)
[2025-03-03] MEDS: cefTRIAXone/D5w 1gm IV premix 1 GM/50 ML BAG IV (08:46)
[2025-03-03] MEDS: SODIUM CHLORIDE 0.9% 1000 ML 1,000 ML 125 ML IV ×2 (08:46→20:49)
[2025-03-03 12:06] LABS: Cocci Serology, IgM Negative (Negative)
[2025-03-03] MEDS: VANCOMYCIN/NS 1 GM IVPB 200 ML IV ×2 (14:00→21:57)
--- NOTE | 2025-03-03 17:19 | ESPR_ITS ---
<Statement entered by Jasmin Bliss MD - 03/06/25 15:16> I Jasmin Bliss MD reviewed the note and agree with the resident's assessment & plan with exceptions as below. I have personally reviewed labs, imaging, home meds/prior records, examined the patient, formulated and discussed management plan with the IM team. 34-year-old male with morbid obesity admitted for right lower extremity cellulitis. Patient has significant erythema tenderness and swelling with boundaries unchanged from the initial marker. Continue IV fluid resuscitation continue Rocephin, add vancomycin to patient's regimen, obtain blood cultures. <Statement entered by Yony Ford MD - 03/03/25 18:40> I discussed with and supervised the sales and marketing intern physician involved in the care of this patient. Patient assessment and plan was discussed with entire medicine team, including my attending. I agree with the assessment and plan as documented by sales and marketing intern doctor. Patient care was discussed with my attending physician Dr. Izaiah Ford, PGY-2 Documentation for date of: 03/03/25 Subjective Subjective Interval history: Patient is seen and examined at bedside No further febrile episodes since last night. Patient reported that he is feeling overall good since the time of admission CT abdomen/pelvis, CT of right lower extremity done yesterday came back negative. Labs showed downtrending white blood cell count Doxycycline is discontinued and patient is started on vancomycin Will monitor for further febrile episodes and if the patient does not have any febrile episodes, will discharge tomorrow Exam Vital Signs Temp Pulse Resp BP Pulse Ox O2 Del Method O2 Flow Rate 97.0 F 92 16 165/91 H 93 L Nasal Cannula 3 03/03/25 16:00 03/03/25 16:00 03/03/25 16:03/03/25 16:03/03/25 16:03/03/25 04:00 03/03/25 04:00 FiO2 30 02/28/25 20:08 Narrative Exam General: Awake. obese HEENT: Normocephalic, atraumatic, mucous membranes moist. Heart: Regular rate and rhythm, no murmurs. Lungs: Clear to auscultation with no wheezing or crackles. Abdomen: Soft, nondistended, nontender, positive bowel sounds. ?No guarding or rebound tenderness. Neurologic: Alert and oriented x3, no gross neurological deficit, and patient able to move all 4 extremities. Extremities: Right lower extremity swelling with erythema. B/l chronic venous stasis noted with induration. Skin: No rash or ecchymoses. Objective Labs 03/03/25 04:40 03/03/25 04:40 Labs: Laboratory Results - last 24 hr 03/03/25 04:40 WBC 14.5 H RBC 4.25 L Hgb 12.3 L Hct 38.7 L MCV 91 MCH 28.9 MCHC 31.8 RDW Std Deviation 52.0 H Plt Count 203 Neut % (Auto) 68 Lymph % (Auto) 19 [place] % (Auto) 10 Eos % (Auto) 2 Baso % (Auto) 0 Neut # (Auto) 9.9 H Lymph # (Auto) 2.8 [place] # (Auto) 1.4 H Eos # (Auto) 0.3 Baso # (Auto) 0.0 Immature Gran # (Auto) 0.15 H Absolute Nucleated RBC 0.03 H Immature Gran % 1 H Nucleated RBC % 0 Sodium 135 L Potassium 4.2 Chloride 99 Carbon Dioxide 29.3 Anion Gap 7 BUN 8 L Creatinine 0.8 Estim Creat Clear Calc 237.0 eGFR > 60 BUN/Creatinine Ratio 10 L Glucose 108 H Calculated Osmolality 269 L Calcium 9.2 Coccidioides IgM Ab Negative Quality Measures Quality Measures sepsis Current suspected stage: ruled out Possible source: skin/soft tissue Blood cultures ordered: yes Antibiotic ordered: Yes Assessment & Plan Assessment Current Active Medications: Generic Name Dose Route Start Last Admin Trade Name Freq PRN Reason Stop Dose Admin Acetaminophen 650 mg 02/28/25 15:53 03/03/25 09:07 Acetaminophen 325 Mg Tablet PO 03/30/25 15:52 650 mg Q6H PRN Administration Fever >100.4 Enoxaparin Sodium 60 mg 03/02/25 21:00 03/03/25 08:45 Enoxaparin Sod Inj 60 Mg/0.6 Ml Syringe SC 03/16/25 20:59 60 mg BID AYALA Administration Ceftriaxone Sodium/Dextrose 1 gm in 50 mls @ 100 mls/hr 02/28/25 15:59 03/03/25 08:46 Rocephin/D5w 1gm Iv Premix IV 03/07/25 15:58 100 mls/hr QDAY AYALA Administration Sodium Chloride 1,000 mls @ 125 mls/hr 03/01/25 17:35 03/03/25 08:46 Ns IV 03/31/25 17:34 125 mls/hr .Q8H AYALA Administration Vancomycin/Sodium Chloride 200 mls @ 120 mls/hr 03/03/25 11:15 03/03/25 14:00 Vancomycin/Ns 1 Gm Ivpb IV 03/10/25 11:14 120 mls/hr Q8HR AYALA Administration Ondansetron HCl 4 mg 02/28/25 15:53 Ondansetron Inj 2 Mg/Ml Inj 2 Ml IVP 03/30/25 15:52 Q6H PRN NAUSEA OR VOMITING Protocol Pantoprazole Sodium 40 mg 03/01/25 09:00 03/03/25 08:45 Pantoprazole 40 Mg Tablet PO 03/31/25 08:59 40 mg QDAY AYALA Administration Pharmacy Consult 1 each 03/04/25 09:00 Vancomycin Pharmacy To Dose 1 Each Each IV 04/03/25 08:59 QDAY PRN CONSULT Plan A 34-year-old male, morbidly obese with no significant past medical and surgical history presented to the hospital with chief complaints of fever and swelling in right lower extremity since 1 day and admitted for sepsis 2/2 Right lower extremity cellulitis # Sepsis, resolved secondary to # Right lower extremity cellulitis - Patient presented to the hospital with chief complaints of fever and right lower extremity swelling since 1 day - Vitals at the time of admission are significant for pulse rate 128, temperature 102.3, respiratory rate 21 + cellulitis = fits into sepsis - Labs are significant for WBC 24.4, CRP 4.2, ESR 55, procalcitonin 3.02, lactate 2.6 - Venous Doppler showed no evidence of DVT - Blood cultures - no growth after 48hrs - Ordered CT abdomen and pelvis, CT Rt lower extremity - no significant abnormality Plan - Started on ceftriaxone 1 g IV daily and discontinued doxycycline 100 Mg as of 03/03 and started on vancomycin(03/03 - - Will recommend leg and elevation # ?JENY/OHS # Morbid obesity - Patient is falling asleep while giving history - Patient also endorsed that he had similar complaints for which he was supposed to get a sleep study, pending Plan - CPAP overnight, but patient refused it - Explained about the risks and benefits, patient understood Hospital Maintenance: Dispo: medtele DVT ppx: Enoxaparin GI ppx: Protonix Diet: Regular IV lines: Peripheral Code status: Full Patient plan of care was discussed with the attending physician, Dr. Hernández and senior resident Dr. Liliana Stoll, PGY1
[2025-03-03] MEDS: HYDROcodone/APAP 5/325 TABLET 1 TAB PO (22:14)
[2025-03-04] VITALS (9 sets, daily range): BP systolic 131–161; BP diastolic 81–101; PULSE 62–107; RESP 17–20; TEMP 36–36.9; O2SAT 95–98; BMI 62.3
[2025-03-04] MEDS: VANCOMYCIN/NS 1 GM IVPB 200 ML IV (05:33)
[2025-03-04 06:49] LABS: Basophils # (Auto) 0.0 Thou/mm3 (0.0-0.2); Basophils % (Auto) 0 % (0-2.5); Eosinophils # (Auto) 0.4 Thou/mm3 (0.0-0.5); Eosinophils % (Auto) 3 % (0-10); Hematocrit 36.5 % (41.0-53.0); Hemoglobin 11.8 g/dL (13.5-16.0); Immature Granulocytes Auto 0.17 Thou/mm3 (0.00-0.00); Lymphocytes # (Auto) 2.0 Thou/mm3 (1.0-4.8); Lymphocytes % (Auto) 17 % (10-50); Mean Corpuscular HGB Conc 32.3 g/dl (31.0-37.0); Mean Corpuscular Hemoglobin 28.9 pg (25.0-35.0); Mean Corpuscular Volume 90 fL (80-100); Monocytes # (Auto) 1.1 Thou/mm3 (0.0-0.8); Monocytes % (Auto) 10 % (0-12); Neutrophils # (Auto) 8.0 Thou/mm3 (1.8-7.7); Neutrophils % (Auto) 69 % (37-80); Nucleated Red Blood Cell # 0.00 Thou/mm3 (0.00-0.00); Nucleated Red Blood Cell % 0 /100 WBC (0); Platelet Count 206 Thou/mm3 (140-440); RDW Standard Deviation 51.1 fL (35.1-43.9); Red Blood Count 4.08 Miln/mm3 (4.50-5.90); White Blood Count 11.6 Thou/mm3 (3.8-10.6)
[2025-03-04 07:57] LABS: Alanine Aminotransferase 29 U/L (10-49); Albumin, Serum 3.7 gm/dL (3.5-5.0); Albumin/Globulin Ratio 1.2 (1.2-2.2); Alkaline Phosphatase 60 U/L (46-116); Anion Gap 9 (7-16); Aspartate Amino Transferase 18 U/L (0-34); BUN/Creatinine Ratio 13 Ratio (12-20); Bilirubin,Total 0.3 mg/dL (0.3-1.2); Blood Urea Nitrogen 9 mg/dL (9-23); Calcium 9.2 mg/dL (8.3-10.6); Calcium (Corrected) 9.4 mg/dL (8.5-10.1); Carbon Dioxide 29.2 mMol/L (20.0-31.0); Chloride 98 mMol/L (98-107); Creatinine (Component) 0.7 mg/dL (0.6-1.3); Estimated Creatinine Clearance 270.9 mL/min (>60); Globulin 3.1 gm/dL (2.3-3.5); Glucose 108 mg/dL (74-106); Osmolality,Calculated 271 (275-295); Potassium 4.0 mMol/L (3.4-5.1); Sodium 136 mMol/L (136-145); Total Protein 6.8 gm/dL (5.7-8.2); eGFR > 60 See Note
[2025-03-04] MEDS: cefTRIAXone/D5w 1gm IV premix 1 GM/50 ML BAG IV (08:09)
[2025-03-04] MEDS: PANTOPRAZOLE 40 MG TABLET PO (08:09)
[2025-03-04 13:23] LABS: Vancomycin,Trough 7.2 mcg/mL (5.0-10.0)
[2025-03-04 13:27] LABS: Cocci Serology, IgG Negative (Negative)
[2025-03-04] MEDS: ACETAMINOPHEN 325 MG TABLET 650 MG PO (14:05)
[2025-03-04] MEDS: SODIUM CHLORIDE 0.9% 1000 ML 1,000 ML 125 ML IV ×2 (14:07→21:03)
--- NOTE | 2025-03-04 14:19 | ESPR_ITS ---
<Statement entered by Jasmin Bliss MD - 03/06/25 15:18> I Jasmin Bliss MD reviewed the note and agree with the resident's assessment & plan with exceptions as below. I have personally reviewed labs, imaging, home meds/prior records, examined the patient, formulated and discussed management plan with the IM team. 34-year-old male with morbid obesity admitted for right lower extremity cellulitis. Patient has significant erythema tenderness and swelling with boundaries unchanged from the initial marker. There is superficial blistering likely due to friction on the ventral aspect of the calf. Continue IV fluid resuscitation, switch antibiotics to Zosyn and vancomycin. Continue monitoring with repeat CBC, inflammatory markers including lactate. Documentation for date of: 03/04/25 Subjective Subjective Interval history: Patient is seen and examined at bedside No acute overnight events and no further febrile episodes noted. Vitals are stable and found to have mildly elevated blood pressure with SBP between 130-140, will monitor for now as the elevated blood pressures could be due to pain All the blood cultures came back negative. Ceftriaxone is discontinued and patient is started on Zosyn. Will continue antibiotics for 1 or 2 more days as patient is still having active cellulitis. Exam Vital Signs Temp Pulse Resp BP Pulse Ox O2 Del Method O2 Flow Rate 96.9 F 89 17 131/83 H 97 Room Air 3 03/04/25 12:00 03/04/25 12:00 03/04/25 12:00 03/04/25 12:00 03/04/25 12:00 03/04/25 12:00 03/03/25 04:00 FiO2 30 02/28/25 20:08 Narrative Exam General: Awake. obese HEENT: Normocephalic, atraumatic, mucous membranes moist. Heart: Regular rate and rhythm, no murmurs. Lungs: Clear to auscultation with no wheezing or crackles. Abdomen: Soft, nondistended, nontender, positive bowel sounds. ?No guarding or rebound tenderness. Neurologic: Alert and oriented x3, no gross neurological deficit, and patient able to move all 4 extremities. Extremities: Right lower extremity swelling with erythema. B/l chronic venous stasis noted with induration. Skin: No rash or ecchymoses. Objective Labs 03/04/25 05:30 03/04/25 05:30 Labs: Laboratory Results - last 24 hr 03/03/25 03/04/25 03/04/25 04:40 05:30 12:36 WBC 11.6 H RBC 4.08 L Hgb 11.8 L Hct 36.5 L MCV 90 MCH 28.9 MCHC 32.3 RDW Std Deviation 51.1 H Plt Count 206 Neut % (Auto) 69 Lymph % (Auto) 17 [place] % (Auto) 10 Eos % (Auto) 3 Baso % (Auto) 0 Neut # (Auto) 8.0 H Lymph # (Auto) 2.0 [place] # (Auto) 1.1 H Eos # (Auto) 0.4 Baso # (Auto) 0.0 Immature Gran # (Auto) 0.17 H Absolute Nucleated RBC 0.00 Immature Gran % 2 H Nucleated RBC % 0 Sodium 136 Potassium 4.0 Chloride 98 Carbon Dioxide 29.2 Anion Gap 9 BUN 9 Creatinine 0.7 Estim Creat Clear Calc 270.9 eGFR > 60 BUN/Creatinine Ratio 13 Glucose 108 H Calculated Osmolality 271 L Calcium 9.2 Corrected Calcium 9.4 Total Bilirubin 0.3 AST 18 ALT 29 Alkaline Phosphatase 60 Total Protein 6.8 Albumin 3.7 Globulin 3.1 Albumin/Globulin Ratio 1.2 Vancomycin Trough 7.2 Coccidioides IgG Ab Negative Quality Measures Quality Measures sepsis Current suspected stage: ruled out Possible source: skin/soft tissue Blood cultures ordered: yes Antibiotic ordered: Yes Assessment & Plan Assessment Current Active Medications: Generic Name Dose Route Start Last Admin Trade Name Freq PRN Reason Stop Dose Admin Acetaminophen 650 mg 02/28/25 15:53 03/04/25 14:05 Acetaminophen 325 Mg Tablet PO 03/30/25 15:52 650 mg Q6H PRN Administration Fever >100.4 Hydrocodone Bitart/Acetaminophen 1 tab 03/04/25 14:14 Hydrocodone/Apap 5/325 Tablet PO 03/09/25 14:13 Q8HR PRN Pain 7 -10 Enoxaparin Sodium 60 mg 03/02/25 21:00 03/04/25 08:16 Enoxaparin Sod Inj 60 Mg/0.6 Ml Syringe SC 03/16/25 20:59 Not Given BID AYALA Ceftriaxone Sodium/Dextrose 1 gm in 50 mls @ 100 mls/hr 02/28/25 15:59 03/04/25 08:09 Rocephin/D5w 1gm Iv Premix IV 03/07/25 15:58 100 mls/hr QDAY AYALA Administration Sodium Chloride 1,000 mls @ 125 mls/hr 03/01/25 17:35 03/04/25 14:07 Ns IV 03/31/25 17:34 125 mls/hr .Q8H AYALA Administration Vancomycin HCl 200 mls @ 120 mls/hr 03/04/25 14:00 Vancomycin/Water 1250 Mg Ivpb IV 03/11/25 13:59 Q8HR AYALA Ondansetron HCl 4 mg 02/28/25 15:53 Ondansetron Inj 2 Mg/Ml Inj 2 Ml IVP 03/30/25 15:52 Q6H PRN NAUSEA OR VOMITING Protocol Pantoprazole Sodium 40 mg 03/01/25 09:00 03/04/25 08:09 Pantoprazole 40 Mg Tablet PO 03/31/25 08:59 40 mg QDAY AYALA Administration Pharmacy Consult 1 each 03/04/25 09:00 Vancomycin Pharmacy To Dose 1 Each Each IV 04/03/25 08:59 QDAY PRN CONSULT Plan A 34-year-old male, morbidly obese with no significant past medical and surgical history presented to the hospital with chief complaints of fever and swelling in right lower extremity since 1 day and admitted for sepsis 2/2 Right lower extremity cellulitis # Sepsis, resolved secondary to # Right lower extremity cellulitis - Patient presented to the hospital with chief complaints of fever and right lower extremity swelling since 1 day - Vitals at the time of admission are significant for pulse rate 128, temperature 102.3, respiratory rate 21 + cellulitis = fits into sepsis - Labs are significant for WBC 24.4, CRP 4.2, ESR 55, procalcitonin 3.02, lactate 2.6 - Venous Doppler showed no evidence of DVT - Blood cultures - no growth after 48hrs - Ordered CT abdomen and pelvis, CT Rt lower extremity - no significant abnormality Plan - Started on ceftriaxone 1 g IV daily and discontinued doxycycline 100 Mg as of 03/03 and started on vancomycin(03/03 - - Discontinued ceftriaxone and started on Zosyn (03/04 - - Recommended leg and elevation # ?JENY/OHS # Morbid obesity - Patient is falling asleep while giving history - Patient also endorsed that he had similar complaints for which he was supposed to get a sleep study, pending Plan - CPAP overnight, but patient refused it - Explained about the risks and benefits, patient understood Hospital Maintenance: Dispo: medtele DVT ppx: Enoxaparin GI ppx: Protonix Diet: Regular IV lines: Peripheral Code status: Full Patient plan of care was discussed with the attending physician, Dr. Betty Stoll, PGY1
[2025-03-04] MEDS: PIPER/TAZO 3.375 GM PREMIX 3.375 GM/50 ML BAG IV ×2 (15:03→21:02)
[2025-03-04] MEDS: HYDROcodone/APAP 5/325 TABLET 1 TAB PO (15:03)
[2025-03-04] MEDS: VANCOMYCIN IV ×2 (15:59→21:01)
[2025-03-04] MEDS: WATER IV ×2 (15:59→21:01)
[2025-03-05] VITALS (9 sets, daily range): BP systolic 124–149; BP diastolic 76–89; PULSE 62–107; RESP 15–20; TEMP 36.1–36.8; O2SAT 94–99
[2025-03-05] MEDS: HYDROcodone/APAP 5/325 TABLET 1 TAB PO ×4 (02:46→22:25)
[2025-03-05] MEDS: VANCOMYCIN IV (05:01)
[2025-03-05] MEDS: WATER IV (05:01)
[2025-03-05 05:55] LABS: Basophils # (Auto) 0.0 Thou/mm3 (0.0-0.2); Basophils % (Auto) 0 % (0-2.5); Eosinophils # (Auto) 0.3 Thou/mm3 (0.0-0.5); Eosinophils % (Auto) 3 % (0-10); Hematocrit 39.3 % (41.0-53.0); Hemoglobin 12.3 g/dL (13.5-16.0); Immature Granulocytes Auto 0.27 Thou/mm3 (0.00-0.00); Lymphocytes # (Auto) 2.4 Thou/mm3 (1.0-4.8); Lymphocytes % (Auto) 22 % (10-50); Mean Corpuscular HGB Conc 31.3 g/dl (31.0-37.0); Mean Corpuscular Hemoglobin 29.0 pg (25.0-35.0); Mean Corpuscular Volume 93 fL (80-100); Monocytes # (Auto) 1.4 Thou/mm3 (0.0-0.8); Monocytes % (Auto) 12 % (0-12); Neutrophils # (Auto) 6.9 Thou/mm3 (1.8-7.7); Neutrophils % (Auto) 61 % (37-80); Nucleated Red Blood Cell # 0.00 Thou/mm3 (0.00-0.00); Nucleated Red Blood Cell % 0 /100 WBC (0); Platelet Count 251 Thou/mm3 (140-440); RDW Standard Deviation 53.1 fL (35.1-43.9); Red Blood Count 4.24 Miln/mm3 (4.50-5.90); White Blood Count 11.3 Thou/mm3 (3.8-10.6)
[2025-03-05] MEDS: PIPER/TAZO 3.375 GM PREMIX 3.375 GM/50 ML BAG IV ×3 (06:35→21:14)
[2025-03-05 06:38] LABS: Alanine Aminotransferase 33 U/L (10-49); Albumin, Serum 3.8 gm/dL (3.5-5.0); Albumin/Globulin Ratio 1.0 (1.2-2.2); Alkaline Phosphatase 64 U/L (46-116); Anion Gap 5 (7-16); Aspartate Amino Transferase 24 U/L (0-34); BUN/Creatinine Ratio 10 Ratio (12-20); Bilirubin,Total 0.3 mg/dL (0.3-1.2); Blood Urea Nitrogen 8 mg/dL (9-23); Calcium 8.8 mg/dL (8.3-10.6); Calcium (Corrected) 9.0 mg/dL (8.5-10.1); Carbon Dioxide 33.2 mMol/L (20.0-31.0); Chloride 100 mMol/L (98-107); Creatinine (Component) 0.8 mg/dL (0.6-1.3); Estimated Creatinine Clearance 237.0 mL/min (>60); Globulin 3.7 gm/dL (2.3-3.5); Glucose 113 mg/dL (74-106); Magnesium 2.1 mg/dL (1.6-2.6); Osmolality,Calculated 274 (275-295); Potassium 4.6 mMol/L (3.4-5.1); Sodium 138 mMol/L (136-145); Total Protein 7.5 gm/dL (5.7-8.2); eGFR > 60 See Note
[2025-03-05] MEDS: PANTOPRAZOLE 40 MG TABLET PO (09:35)
[2025-03-05] MEDS: SODIUM CHLORIDE 0.9% 1000 ML 1,000 ML 125 ML IV (13:16)
[2025-03-05 13:41] LABS: Vancomycin,Trough 9.4 mcg/mL (5.0-10.0)
[2025-03-05] MEDS: Vancomycin Inj 1,500 MG in SODIUM CHLORIDE 0.9% 500 ML 500 ML 120 MG IV ×2 (15:22→22:22)
--- NOTE | 2025-03-05 16:25 | ESPR_ITS ---
<Statement entered by Jasmin Bliss MD - 03/06/25 15:20> I Jasmin Bliss MD reviewed the note and agree with the resident's assessment & plan with exceptions as below. I have personally reviewed labs, imaging, home meds/prior records, examined the patient, formulated and discussed management plan with the IM team. 34-year-old male with morbid obesity admitted for right lower extremity cellulitis. Patient has significant erythema tenderness and swelling with boundaries unchanged from the initial marker. There is superficial blistering likely due to friction on the ventral aspect of the calf. Continue IV fluid resuscitation, continue antibiotics to Zosyn and vancomycin. If erythema improving next 24 hours we will repeat imaging and consult ID for optimization of antibiotics. Documentation for date of: 03/05/25 Subjective Subjective Interval history: Patient is seen and examined at bedside No acute overnight events. Denies any other complaints except for mild pain at the site of cellulitis No further episodes of fever noted. Vitals are stable except for mildly elevated blood pressures On physical examination, patient noted to have blisters on the posterior aspect of the leg Patient is currently on vancomycin and Zosyn Will continue antibiotics for now and scan his leg if there is any further worsening in his cellulitis Exam Vital Signs Temp Pulse Resp BP Pulse Ox O2 Del Method O2 Flow Rate 97.5 F 101 H 15 149/89 H 94 L Nasal Cannula 7 03/05/25 16:00 03/05/25 16:00 03/05/25 16:00 03/05/25 16:00 03/05/25 16:00 03/05/25 12:00 03/05/25 12:00 FiO2 30 02/28/25 20:08 Narrative Exam General: Awake. obese HEENT: Normocephalic, atraumatic, mucous membranes moist. Heart: Regular rate and rhythm, no murmurs. Lungs: Clear to auscultation with no wheezing or crackles. Abdomen: Soft, nondistended, nontender, positive bowel sounds. ?No guarding or rebound tenderness. Neurologic: Alert and oriented x3, no gross neurological deficit, and patient able to move all 4 extremities. Extremities: Right lower extremity swelling with erythema. B/l chronic venous stasis noted with induration. Skin: No rash or ecchymoses. Objective Labs 03/05/25 05:01 03/05/25 05:01 Labs: Laboratory Results - last 24 hr 03/05/25 03/05/25 05:01 12:50 WBC 11.3 H RBC 4.24 L Hgb 12.3 L Hct 39.3 L MCV 93 MCH 29.0 MCHC 31.3 RDW Std Deviation 53.1 H Plt Count 251 D Neut % (Auto) 61 Lymph % (Auto) 22 [place] % (Auto) 12 Eos % (Auto) 3 Baso % (Auto) 0 Neut # (Auto) 6.9 Lymph # (Auto) 2.4 [place] # (Auto) 1.4 H Eos # (Auto) 0.3 Baso # (Auto) 0.0 Immature Gran # (Auto) 0.27 H Absolute Nucleated RBC 0.00 Immature Gran % 2 H Nucleated RBC % 0 Sodium 138 Potassium 4.6 D Chloride 100 Carbon Dioxide 33.2 H Anion Gap 5 L BUN 8 L Creatinine 0.8 Estim Creat Clear Calc 237.0 eGFR > 60 BUN/Creatinine Ratio 10 L Glucose 113 H Calculated Osmolality 274 L Calcium 8.8 Corrected Calcium 9.0 Magnesium 2.1 Total Bilirubin 0.3 AST 24 ALT 33 Alkaline Phosphatase 64 Total Protein 7.5 Albumin 3.8 Globulin 3.7 H Albumin/Globulin Ratio 1.0 L Vancomycin Trough 9.4 Quality Measures Quality Measures sepsis Current suspected stage: ruled out Possible source: skin/soft tissue Blood cultures ordered: yes Antibiotic ordered: Yes Assessment & Plan Assessment Current Active Medications: Generic Name Dose Route Start Last Admin Trade Name Freq PRN Reason Stop Dose Admin Acetaminophen 650 mg 02/28/25 15:53 03/04/25 14:05 Acetaminophen 325 Mg Tablet PO 03/30/25 15:52 650 mg Q6H PRN Administration Fever >100.4 Hydrocodone Bitart/Acetaminophen 1 tab 03/05/25 11:07 03/05/25 16:19 Hydrocodone/Apap 5/325 Tablet PO 03/09/25 14:13 1 tab Q6HR PRN Administration Pain 7 -10 Amlodipine Besylate 10 mg 03/05/25 09:00 03/05/25 09:34 Amlodipine Besylate 5 Mg Tablet PO 04/04/25 08:59 10 mg QDAY AYALA Administration Enoxaparin Sodium 60 mg 03/02/25 21:00 03/05/25 09:37 Enoxaparin Sod Inj 60 Mg/0.6 Ml Syringe SC 03/16/25 20:59 Not Given BID AYALA Sodium Chloride 1,000 mls @ 125 mls/hr 03/05/25 11:14 03/05/25 13:16 Ns IV 03/05/25 19:13 125 mls/hr .Q8H ONE Administration Vancomycin HCl 1,500 mg/ 500 mls @ 120 mls/hr 03/05/25 14:00 03/05/25 15:22 Sodium Chloride IV 03/12/25 13:59 120 mls/hr Q8HR AYALA Administration Piperacillin/Tazobactam/Dextrose 3.375 gm in 50 mls @ 100 mls/hr 03/05/25 15:00 03/05/25 15:01 Zosyn IV 03/11/25 21:59 Not Given Q8HR AYALA Protocol Ondansetron HCl 4 mg 02/28/25 15:53 Ondansetron Inj 2 Mg/Ml Inj 2 Ml IVP 03/30/25 15:52 Q6H PRN NAUSEA OR VOMITING Protocol Pantoprazole Sodium 40 mg 03/01/25 09:00 03/05/25 09:35 Pantoprazole 40 Mg Tablet PO 03/31/25 08:59 40 mg QDAY AYALA Administration Pharmacy Consult 1 each 03/04/25 09:00 Vancomycin Pharmacy To Dose 1 Each Each IV 04/03/25 08:59 QDAY PRN CONSULT Plan A 34-year-old male, morbidly obese with no significant past medical and surgical history presented to the hospital with chief complaints of fever and swelling in right lower extremity since 1 day and admitted for sepsis 2/2 Right lower extremity cellulitis # Sepsis, resolved secondary to # Right lower extremity cellulitis - Patient presented to the hospital with chief complaints of fever and right lower extremity swelling since 1 day - Vitals at the time of admission are significant for pulse rate 128, temperature 102.3, respiratory rate 21 + cellulitis = fits into sepsis - Labs are significant for WBC 24.4, CRP 4.2, ESR 55, procalcitonin 3.02, lactate 2.6 - Venous Doppler showed no evidence of DVT - Blood cultures - no growth after 48hrs - Ordered CT abdomen and pelvis, CT Rt lower extremity - no significant abnormality Plan - Started on Zosyn (03/04 - and vancomycin ( 03/05 - - Recommended leg and elevation # Elevated blood pressures, likely hypertension in the setting of JENY/OHS - Patient is found to have elevated blood pressures throughout the hospitalization - Patient is started on amlodipine 10 Mg p.o. daily Plan - Will continue amlodipine - Will continue to monitor blood pressures and add medications as needed # ?JENY/OHS # Morbid obesity - Patient is falling asleep while giving history - Patient also endorsed that he had similar complaints for which he was supposed to get a sleep study, pending Plan - CPAP overnight, but patient refused it - Explained about the risks and benefits, patient understood Hospital Maintenance: Dispo: medtele DVT ppx: Enoxaparin GI ppx: Protonix Diet: Regular IV lines: Peripheral Code status: Full Patient plan of care was discussed with the attending physician, Dr. Izaiah Stoll, PGY1
--- NOTE | 2025-03-05 17:20 | PC.NURSE ---
Pt curently on Vancomycin. Due to vanco trough values medication adjusted to higher doses per pharmacy protocol. pt has developed large intact blister to right calf. This nurse raised concern to Dr. Stoll that blister may be adverse reaction to vancomycin. No new orders received.
[2025-03-06] VITALS (8 sets, daily range): BP systolic 116–148; BP diastolic 67–90; PULSE 68–104; RESP 16–21; TEMP 36.2–37.3; O2SAT 91–99
[2025-03-06] MEDS: HYDROcodone/APAP 5/325 TABLET 1 TAB PO ×3 (04:38→21:06)
--- NOTE | 2025-03-06 04:49 | PC.NURSE ---
Big blister on right calf popped producing thin dark yellow fluid but thicker than water. Small intact blisters also noted to the anterior side of the lower leg. Patient continues to complain of pain and discomfort on the affected area, more severe now than previously. Dr. Bass made aware. said he will let the day team know.
[2025-03-06] MEDS: PIPER/TAZO 3.375 GM PREMIX 3.375 GM/50 ML BAG IV ×3 (05:15→21:06)
[2025-03-06] MEDS: Vancomycin Inj 1,500 MG in SODIUM CHLORIDE 0.9% 500 ML 500 ML 120 MG IV ×3 (06:06→22:35)
[2025-03-06 06:22] LABS: Basophils # (Auto) 0.0 Thou/mm3 (0.0-0.2); Basophils % (Auto) 0 % (0-2.5); Eosinophils # (Auto) 0.4 Thou/mm3 (0.0-0.5); Eosinophils % (Auto) 3 % (0-10); Hematocrit 35.3 % (41.0-53.0); Hemoglobin 11.2 g/dL (13.5-16.0); Immature Granulocytes Auto 0.34 Thou/mm3 (0.00-0.00); Lymphocytes # (Auto) 2.0 Thou/mm3 (1.0-4.8); Lymphocytes % (Auto) 19 % (10-50); Mean Corpuscular HGB Conc 31.7 g/dl (31.0-37.0); Mean Corpuscular Hemoglobin 28.6 pg (25.0-35.0); Mean Corpuscular Volume 90 fL (80-100); Monocytes # (Auto) 1.2 Thou/mm3 (0.0-0.8); Monocytes % (Auto) 11 % (0-12); Neutrophils # (Auto) 6.8 Thou/mm3 (1.8-7.7); Neutrophils % (Auto) 64 % (37-80); Nucleated Red Blood Cell # 0.00 Thou/mm3 (0.00-0.00); Nucleated Red Blood Cell % 0 /100 WBC (0); Platelet Count 277 Thou/mm3 (140-440); RDW Standard Deviation 50.9 fL (35.1-43.9); Red Blood Count 3.92 Miln/mm3 (4.50-5.90); White Blood Count 10.7 Thou/mm3 (3.8-10.6)
[2025-03-06 06:45] LABS: Alanine Aminotransferase 29 U/L (10-49); Albumin, Serum 3.7 gm/dL (3.5-5.0); Albumin/Globulin Ratio 1.0 (1.2-2.2); Alkaline Phosphatase 58 U/L (46-116); Anion Gap 4 (7-16); Aspartate Amino Transferase 19 U/L (0-34); BUN/Creatinine Ratio 11 Ratio (12-20); Bilirubin,Total 0.3 mg/dL (0.3-1.2); Blood Urea Nitrogen 8 mg/dL (9-23); Calcium 8.7 mg/dL (8.3-10.6); Calcium (Corrected) 8.9 mg/dL (8.5-10.1); Carbon Dioxide 32.6 mMol/L (20.0-31.0); Chloride 100 mMol/L (98-107); Creatinine (Component) 0.7 mg/dL (0.6-1.3); Estimated Creatinine Clearance 270.9 mL/min (>60); Globulin 3.6 gm/dL (2.3-3.5); Glucose 129 mg/dL (74-106); Magnesium 2.1 mg/dL (1.6-2.6); Osmolality,Calculated 274 (275-295); Potassium 4.3 mMol/L (3.4-5.1); Sodium 137 mMol/L (136-145); Total Protein 7.3 gm/dL (5.7-8.2); eGFR > 60 See Note
[2025-03-06] MEDS: PANTOPRAZOLE 40 MG TABLET PO (08:26)
--- NOTE | 2025-03-06 11:55 | XR_ITS ---
Examination: CT right lower leg with intravenous contrast, 2-D sagittal reconstructions. 2-D coronal reconstructions. 3-D reconstructions. Date and time of exam:March 06, 2025 1622 hours INDICATIONS: Right lower leg redness swelling and pain several days COMPARISON: March 02, 2025 CTDI: vol (mGy):22.6 DLP: (mGycm):2655 Technique: Multiple 1.25 mm axial sections of the right lower leg post intravenous administration 60 cc Isovue-370 have been obtained. 2-D sagittal and coronal reconstructions have been obtained. 3-D reconstructions have been obtained. Low dose protocols were performed. One or more of the following dose reduction techniques were used; automated exposure control, adjustment of the mA and/or KV according to patient size, use of iterative reconstruction technique. Findings: Edema in the subcutaneous tissue in the thigh More pronounced edema in the subcutaneous fatty tissues surrounding the knee and the lower leg Negative for osteomyelitis No fluid-filled drainable abscess depicted IMPRESSION: Diffuse cellulitis as above Negative for osteomyelitis Negative for soft tissue abscess
[2025-03-06 14:07] LABS: Vancomycin,Trough 13.9 mcg/mL (5.0-10.0)
--- NOTE | 2025-03-06 14:10 | ESPR_ITS ---
<Statement entered by Jasmin Bliss MD - 03/06/25 15:22> I Jasmin Bliss MD reviewed the note and agree with the resident's assessment & plan with exceptions as below. I have personally reviewed labs, imaging, home meds/prior records, examined the patient, formulated and discussed management plan with the IM team. 34-year-old male with morbid obesity admitted for right lower extremity cellulitis. Patient has significant erythema tenderness and swelling with boundaries unchanged from the initial marker. There is superficial blistering likely due to friction on the ventral aspect of the calf. Continue IV fluid resuscitation, continue antibiotics to Zosyn and vancomycin. Repeat right lower extremity CT with IV contrast to evaluate for potential abscess for more formation or deep tissue infection. Will consult surgery if needed Documentation for date of: 03/06/25 Subjective Subjective Interval history: WBC down trended to 10.7, patient has been febrile complaining of severe pain on ambulation. On physical exam patient very tender. Lower extremity CT with contrast of right leg showed diffuse cellulitis with edema in the subcutaneous tissue in the thigh more pronounced edema fatty tissue surrounding the knee. CT was negative for osteo and abscess. Will continue Vanco and Zosyn, possible discharge tomorrow on cefuroxime. Exam Vital Signs Temp Pulse Resp BP Pulse Ox O2 Del Method O2 Flow Rate 97.3 F 80 20 140/90 H 95 Room Air 7 03/06/25 12:00 03/06/25 12:00 03/06/25 12:00 03/06/25 12:00 03/06/25 12:00 03/06/25 12:00 03/06/25 08:00 FiO2 30 02/28/25 20:08 Narrative Exam General: Awake. obese HEENT: Normocephalic, atraumatic, mucous membranes moist. Heart: Regular rate and rhythm, no murmurs. Lungs: Clear to auscultation with no wheezing or crackles. Abdomen: Soft, nondistended, nontender, positive bowel sounds. ?No guarding or rebound tenderness. Neurologic: Alert and oriented x3, no gross neurological deficit, and patient able to move all 4 extremities. Extremities: Right lower extremity swelling with erythema. B/l chronic venous stasis noted with induration. Skin: No rash or ecchymoses. Objective Labs 03/06/25 05:45 03/06/25 05:45 Labs: Laboratory Results - last 24 hr 03/06/25 03/06/25 05:45 13:02 WBC 10.7 H RBC 3.92 L Hgb 11.2 L Hct 35.3 L MCV 90 MCH 28.6 MCHC 31.7 RDW Std Deviation 50.9 H Plt Count 277 Neut % (Auto) 64 Lymph % (Auto) 19 [place] % (Auto) 11 Eos % (Auto) 3 Baso % (Auto) 0 Neut # (Auto) 6.8 Lymph # (Auto) 2.0 [place] # (Auto) 1.2 H Eos # (Auto) 0.4 Baso # (Auto) 0.0 Immature Gran # (Auto) 0.34 H Absolute Nucleated RBC 0.00 Immature Gran % 3 H Nucleated RBC % 0 Sodium 137 Potassium 4.3 Chloride 100 Carbon Dioxide 32.6 H Anion Gap 4 L BUN 8 L Creatinine 0.7 Estim Creat Clear Calc 270.9 eGFR > 60 BUN/Creatinine Ratio 11 L Glucose 129 H Calculated Osmolality 274 L Calcium 8.7 Corrected Calcium 8.9 Magnesium 2.1 Total Bilirubin 0.3 AST 19 ALT 29 Alkaline Phosphatase 58 Total Protein 7.3 Albumin 3.7 Globulin 3.6 H Albumin/Globulin Ratio 1.0 L Vancomycin Trough 13.9 H Quality Measures Quality Measures sepsis Current suspected stage: ruled out Possible source: skin/soft tissue Blood cultures ordered: yes Antibiotic ordered: Yes Assessment & Plan Assessment Current Active Medications: Generic Name Dose Route Start Last Admin Trade Name Freq PRN Reason Stop Dose Admin Acetaminophen 650 mg 02/28/25 15:53 03/04/25 14:05 Acetaminophen 325 Mg Tablet PO 03/30/25 15:52 650 mg Q6H PRN Administration Fever >100.4 Hydrocodone Bitart/Acetaminophen 1 tab 03/05/25 11:07 03/06/25 04:38 Hydrocodone/Apap 5/325 Tablet PO 03/09/25 14:13 1 tab Q6HR PRN Administration Pain 7 -10 Amlodipine Besylate 10 mg 03/05/25 09:00 03/06/25 08:25 Amlodipine Besylate 5 Mg Tablet PO 04/04/25 08:59 10 mg QDAY AYALA Administration Enoxaparin Sodium 60 mg 03/02/25 21:00 03/06/25 08:25 Enoxaparin Sod Inj 60 Mg/0.6 Ml Syringe SC 03/16/25 20:59 Not Given BID AYALA Vancomycin HCl 1,500 mg/ 500 mls @ 120 mls/hr 03/05/25 14:00 03/06/25 06:06 Sodium Chloride IV 03/12/25 13:59 120 mls/hr Q8HR AYALA Administration Piperacillin/Tazobactam/Dextrose 3.375 gm in 50 mls @ 100 mls/hr 03/05/25 15:00 03/06/25 13:26 Zosyn IV 03/11/25 21:59 100 mls/hr Q8HR AYALA Administration Protocol Ondansetron HCl 4 mg 02/28/25 15:53 Ondansetron Inj 2 Mg/Ml Inj 2 Ml IVP 03/30/25 15:52 Q6H PRN NAUSEA OR VOMITING Protocol Pantoprazole Sodium 40 mg 03/01/25 09:00 03/06/25 08:26 Pantoprazole 40 Mg Tablet PO 03/31/25 08:59 40 mg QDAY AYALA Administration Pharmacy Consult 1 each 03/04/25 09:00 Vancomycin Pharmacy To Dose 1 Each Each IV 04/03/25 08:59 QDAY PRN CONSULT Plan A 34-year-old male, morbidly obese with no significant past medical and surgical history presented to the hospital with chief complaints of fever and swelling in right lower extremity since 1 day and admitted for sepsis 2/2 Right lower extremity cellulitis # Sepsis, resolved secondary to # Right lower extremity cellulitis - Patient presented to the hospital with chief complaints of fever and right lower extremity swelling since 1 day - Vitals at the time of admission are significant for pulse rate 128, temperature 102.3, respiratory rate 21 + cellulitis = fits into sepsis - Labs are significant for WBC 24.4, CRP 4.2, ESR 55, procalcitonin 3.02, lactate 2.6 - Venous Doppler showed no evidence of DVT - Blood cultures - no growth after 48hrs - Ordered CT abdomen and pelvis, CT Rt lower extremity - no significant abnormality Plan - Continue on Zosyn (03/04 - and vancomycin ( 03/05 - - Recommended leg and elevation # Elevated blood pressures, likely hypertension in the setting of JENY/OHS - Patient is found to have elevated blood pressures throughout the hospitalization - Patient is started on amlodipine 10 Mg p.o. daily Plan - Will continue amlodipine - Will continue to monitor blood pressures and add medications as needed # ?JENY/OHS # Morbid obesity - Patient is falling asleep while giving history - Patient also endorsed that he had similar complaints for which he was supposed to get a sleep study, pending Plan - CPAP overnight, but patient refused it - Explained about the risks and benefits, patient understood Hospital Maintenance: Dispo: medtele, requiring IV abx, anticipating discharge within 24 hours DVT ppx: Enoxaparin GI ppx: Protonix Diet: Regular IV lines: Peripheral Code status: Full This patient care was discussed with my attending Dr. Izaiah Ford MD PGY-2 Disclaimer: Minor errors in operational review sergeant may be present since this note was dictated by speech recognition software.
--- NOTE | 2025-03-06 15:34 | PC.SS ---
rounding note: Patient pending CT. Patient on i.v. antibiotics
[2025-03-07] VITALS (11 sets, daily range): BP systolic 109–159; BP diastolic 74–89; PULSE 73–102; RESP 17–97; TEMP 36.2–36.9; O2SAT 95–99
[2025-03-07] MEDS: HYDROcodone/APAP 5/325 TABLET 1 TAB PO ×4 (03:06→20:28)
[2025-03-07] MEDS: PIPER/TAZO 3.375 GM PREMIX 3.375 GM/50 ML BAG IV ×3 (05:29→21:54)
[2025-03-07 05:53] LABS: Basophils # (Auto) 0.1 Thou/mm3 (0.0-0.2); Basophils % (Auto) 1 % (0-2.5); Eosinophils # (Auto) 0.4 Thou/mm3 (0.0-0.5); Eosinophils % (Auto) 4 % (0-10); Hematocrit 36.6 % (41.0-53.0); Hemoglobin 11.2 g/dL (13.5-16.0); Immature Granulocytes Auto 0.28 Thou/mm3 (0.00-0.00); Lymphocytes # (Auto) 2.2 Thou/mm3 (1.0-4.8); Lymphocytes % (Auto) 20 % (10-50); Mean Corpuscular HGB Conc 30.6 g/dl (31.0-37.0); Mean Corpuscular Hemoglobin 27.8 pg (25.0-35.0); Mean Corpuscular Volume 91 fL (80-100); Monocytes # (Auto) 1.0 Thou/mm3 (0.0-0.8); Monocytes % (Auto) 9 % (0-12); Neutrophils # (Auto) 6.9 Thou/mm3 (1.8-7.7); Neutrophils % (Auto) 64 % (37-80); Nucleated Red Blood Cell # 0.00 Thou/mm3 (0.00-0.00); Nucleated Red Blood Cell % 0 /100 WBC (0); Platelet Count 319 Thou/mm3 (140-440); RDW Standard Deviation 51.2 fL (35.1-43.9); Red Blood Count 4.03 Miln/mm3 (4.50-5.90); White Blood Count 10.8 Thou/mm3 (3.8-10.6)
[2025-03-07] MEDS: Vancomycin Inj 1,500 MG in SODIUM CHLORIDE 0.9% 500 ML 500 ML 120 MG IV ×3 (06:00→22:36)
[2025-03-07 06:23] LABS: Alanine Aminotransferase 29 U/L (10-49); Albumin, Serum 3.9 gm/dL (3.5-5.0); Albumin/Globulin Ratio 1.1 (1.2-2.2); Alkaline Phosphatase 59 U/L (46-116); Anion Gap 1 (7-16); Aspartate Amino Transferase 21 U/L (0-34); BUN/Creatinine Ratio 10 Ratio (12-20); Bilirubin,Total 0.3 mg/dL (0.3-1.2); Blood Urea Nitrogen 8 mg/dL (9-23); Calcium 8.8 mg/dL (8.3-10.6); Calcium (Corrected) 8.9 mg/dL (8.5-10.1); Carbon Dioxide 37.6 mMol/L (20.0-31.0); Chloride 98 mMol/L (98-107); Creatinine (Component) 0.8 mg/dL (0.6-1.3); Estimated Creatinine Clearance 237.0 mL/min (>60); Globulin 3.7 gm/dL (2.3-3.5); Glucose 109 mg/dL (74-106); Magnesium 2.2 mg/dL (1.6-2.6); Osmolality,Calculated 273 (275-295); Potassium 4.6 mMol/L (3.4-5.1); Sodium 137 mMol/L (136-145); Total Protein 7.6 gm/dL (5.7-8.2); eGFR > 60 See Note
--- NOTE | 2025-03-07 08:07 | PC.NURSE ---
Elena c/o pain RLE 03/16, [place] last given at 0306am, called [facility] to give a dose right now.
[2025-03-07] MEDS: PANTOPRAZOLE 40 MG TABLET PO (08:14)
--- NOTE | 2025-03-07 09:44 | PC.NURSE ---
Patient pain 03/16 states [place] not helping pain. Called Dr. Fountain, states does not have this patient and other resident is not here, will call me back in 15-20 mins regarding what to do.
[2025-03-07] MEDS: KETOROLAC INJ 30 MG/ML VIAL 15 MG IVP (11:01)
--- NOTE | 2025-03-07 14:03 | ESPR_ITS ---
<Statement entered by Shahzad Headley MD - 03/07/25 20:35> I have reviewed the note and agree with the resident's assessment & plan with exceptions as below. I have personally reviewed labs, imaging, home meds/prior records, examined the patient, formulated and discussed management plan with the IM team. Patient continuing to improve with cellulitis. Patient has not had a fever overnight, white count downtrending. Patient still requiring some additional pain medicine in which we gave additional pain medicine for him including 15 mg Toradol IV x 1. Patient continued to improve and likely headed toward discharge tomorrow. Shahzad Headley, PGY-2 Documentation for date of: 03/07/25 Subjective Subjective Interval history: Patient seen today. Afebrile since 03/02/2025. Ongoing pain to right lower extremity due to cellulitis, particularly on right calf where blister is present. Patient reports redness is improving. Patient endoses moving with walker couple times a day. Pain is noticed more when limb has been immobile for a period of time and pain goes down with repeated use. Exam Vital Signs Temp Pulse Resp BP Pulse Ox O2 Del Method O2 Flow Rate 97.4 F 80 18 124/77 98 Nasal Cannula 7 03/07/25 12:00 03/07/25 12:23 03/07/25 12:00 03/07/25 12:00 03/07/25 12:00 03/07/25 12:00 03/07/25 12:00 FiO2 30 03/06/25 16:00 Narrative Exam General: A&O x3. Awake. Obese HEENT: Normocephalic, atraumatic, mucous membranes moist. Heart: Regular rate and rhythm, no murmurs. Lungs: Clear to auscultation with no wheezing or crackles. Abdomen: Soft, nondistended, nontender, positive bowel sounds. ?No guarding or rebound tenderness. Neurologic: No gross neurological deficit, and patient able to move all 4 extremities. Extremities: Right lower extremity swelling with erythema. B/l chronic venous stasis noted with induration. Skin: No rash or ecchymoses. Objective Labs 03/08/25 05:27 03/08/25 05:27 Labs: Laboratory Results - last 24 hr 03/06/25 03/07/25 13:02 05:16 WBC 10.8 H RBC 4.03 L Hgb 11.2 L Hct 36.6 L MCV 91 MCH 27.8 MCHC 30.6 L RDW Std Deviation 51.2 H Plt Count 319 D Neut % (Auto) 64 Lymph % (Auto) 20 [place] % (Auto) 9 Eos % (Auto) 4 Baso % (Auto) 1 Neut # (Auto) 6.9 Lymph # (Auto) 2.2 [place] # (Auto) 1.0 H Eos # (Auto) 0.4 Baso # (Auto) 0.1 Immature Gran # (Auto) 0.28 H Absolute Nucleated RBC 0.00 Immature Gran % 3 H Nucleated RBC % 0 Sodium 137 Potassium 4.6 Chloride 98 Carbon Dioxide 37.6 H Anion Gap 1 L BUN 8 L Creatinine 0.8 Estim Creat Clear Calc 237.0 eGFR > 60 BUN/Creatinine Ratio 10 L Glucose 109 H Calculated Osmolality 273 L Calcium 8.8 Corrected Calcium 8.9 Magnesium 2.2 Total Bilirubin 0.3 AST 21 ALT 29 Alkaline Phosphatase 59 Total Protein 7.6 Albumin 3.9 Globulin 3.7 H Albumin/Globulin Ratio 1.1 L Vancomycin Trough 13.9 H Quality Measures Quality Measures sepsis Current suspected stage: ruled out Possible source: skin/soft tissue Blood cultures ordered: yes Antibiotic ordered: Yes Assessment & Plan Assessment Current Active Medications: Generic Name Dose Route Start Last Admin Trade Name Freq PRN Reason Stop Dose Admin Acetaminophen 650 mg 02/28/25 15:53 03/04/25 14:05 Acetaminophen 325 Mg Tablet PO 03/30/25 15:52 650 mg Q6H PRN Administration Fever >100.4 Hydrocodone Bitart/Acetaminophen 1 tab 03/05/25 11:07 03/07/25 08:14 Hydrocodone/Apap 5/325 Tablet PO 03/09/25 14:13 1 tab Q6HR PRN Administration Pain 7 -10 Amlodipine Besylate 10 mg 03/05/25 09:00 03/07/25 08:14 Amlodipine Besylate 5 Mg Tablet PO 04/04/25 08:59 10 mg QDAY AYALA Administration Enoxaparin Sodium 60 mg 03/02/25 21:00 03/07/25 08:15 Enoxaparin Sod Inj 60 Mg/0.6 Ml Syringe SC 03/16/25 20:59 Not Given BID AYALA Vancomycin HCl 1,500 mg/ 500 mls @ 120 mls/hr 03/05/25 14:00 03/07/25 06:00 Sodium Chloride IV 03/12/25 13:59 120 mls/hr Q8HR AYALA Administration Protocol Piperacillin/Tazobactam/Dextrose 3.375 gm in 50 mls @ 100 mls/hr 03/05/25 15:00 03/07/25 13:02 Zosyn IV 03/11/25 21:59 100 mls/hr Q8HR AYALA Administration Protocol Ondansetron HCl 4 mg 02/28/25 15:53 Ondansetron Inj 2 Mg/Ml Inj 2 Ml IVP 03/30/25 15:52 Q6H PRN NAUSEA OR VOMITING Protocol Pantoprazole Sodium 40 mg 03/01/25 09:00 03/07/25 08:14 Pantoprazole 40 Mg Tablet PO 03/31/25 08:59 40 mg QDAY AYALA Administration Pharmacy Consult 1 each 03/04/25 09:00 Vancomycin Pharmacy To Dose 1 Each Each IV 04/03/25 08:59 QDAY PRN CONSULT Plan Assessment A 34-year-old male, morbidly obese with no significant past medical and surgical history presented to the hospital with chief complaints of fever and swelling in right lower extremity since 1 day and admitted for sepsis 2/2 Right lower extremity cellulitis #Sepsis, ruled out #RLE cellulitis - Patient presented to the hospital with chief complaints of fever and right lower extremity swelling since 1 day - Vitals at the time of admission are significant for pulse rate 128, temperature 102.3, respiratory rate 21 + cellulitis = fits into sepsis - Labs were significant for WBC 24.4, CRP 4.2, ESR 55, procalcitonin 3.02, lactate 2.6 - Venous Doppler showed no evidence of DVT - Blood cultures - no growth after 48hrs - Ordered CT abdomen and pelvis, CT Rt lower extremity - no significant abnormality Plan - Continue on Zosyn (03/04 - and vancomycin ( 03/05 - - Recommended leg and elevation #Essential hypertension - Patient is found to have elevated blood pressures throughout the hospitalization - Patient is started on amlodipine 10 mg p.o. daily Plan - Will continue amlodipine - Will continue to monitor blood pressures and add medications as needed # ?JENY/OHS # Morbid obesity - Patient is falling asleep while giving history - Patient also endorsed that he had similar complaints for which he was supposed to get a sleep study, pending Plan - CPAP tried last night but patient refused it due to difficulty taking breaths with it on - O2 as needed for when patient goes to sleep as requested by patient - Outpatient sleep study needs to be arranged Hospital Maintenance: Dispo: medtele, requiring IV abx, anticipating discharge within 24 hours DVT ppx: Enoxaparin GI ppx: Protonix Diet: Regular IV lines: Peripheral Code status: Full Case discussed with my attending Dr. Hu, and senior resident, Dr. Fang Maddox MD PGY-1 Attending Provider Attestation/Addendum I attest that I was physically present for the evaluation, physical examination, lab and imaging review of the patient with the residents. I discussed the case with the residents and agree with the findings and plans of care as documented above. Wang Hu MD
--- NOTE | 2025-03-07 22:00 | PC.NURSE ---
PATIENT REFUSED BIPAP
--- NOTE | 2025-03-07 22:15 | PC.NURSE ---
4+ EDEMA TO BILATERAL EXTREMITIES, DR. SÁNCHEZ MADE AWARE, RECOMMENDED DIURETIC IF APPROPRIATE. WOUND CARE PERFORM FOLLOWS: CLEANSE WITH WOUND CLEANSER, PAT DRY, PAINTED BLISTERS WITH IODINE, COVER WITH ABD, WRAP WITH KERLIX, AND COVER WITH JUAN PABLO WRAP, SECURE WITH TAPE. PT C/O PAIN 10 FROM SCALE OF 0-10, DR SÁNCHEZ MADE AWARE AND SHE WILL REVIEW PTS CHART AND PUT IN ORDERS.
[2025-03-07] MEDS: HYDROmorphone INJ 2 MG/ML VIAL 1 MG IVP (23:17)
[2025-03-08] VITALS (8 sets, daily range): BP systolic 131–154; BP diastolic 72–86; PULSE 79–113; RESP 15–20; TEMP 36.1–37.3; O2SAT 96–97
--- NOTE | 2025-03-08 00:49 | PC.NURSE ---
PATIENT RESTING, CHEST RISE AND FALL NOTED, MOTHER AT BEDSIDE.
[2025-03-08] MEDS: HYDROcodone/APAP 5/325 TABLET 1 TAB PO (04:45)
[2025-03-08] MEDS: PIPER/TAZO 3.375 GM PREMIX 3.375 GM/50 ML BAG IV (05:18)
--- NOTE | 2025-03-08 05:36 | PC.NURSE ---
DR. SÁNCHEZ MADE AWARE PT STILL HAVING PAIN AFTER NORCO 5/325 WAS GIVEN, PT REFUSES TO TAKE DILAUDID OR MORPHINE DUE TO SIDE EFFECTS.
[2025-03-08 06:12] LABS: Basophils # (Auto) 0.1 Thou/mm3 (0.0-0.2); Basophils % (Auto) 1 % (0-2.5); Eosinophils # (Auto) 0.5 Thou/mm3 (0.0-0.5); Eosinophils % (Auto) 5 % (0-10); Hematocrit 35.2 % (41.0-53.0); Hemoglobin 11.2 g/dL (13.5-16.0); Immature Granulocytes Auto 0.41 Thou/mm3 (0.00-0.00); Lymphocytes # (Auto) 2.0 Thou/mm3 (1.0-4.8); Lymphocytes % (Auto) 19 % (10-50); Mean Corpuscular HGB Conc 31.8 g/dl (31.0-37.0); Mean Corpuscular Hemoglobin 29.0 pg (25.0-35.0); Mean Corpuscular Volume 91 fL (80-100); Monocytes # (Auto) 0.8 Thou/mm3 (0.0-0.8); Monocytes % (Auto) 8 % (0-12); Neutrophils # (Auto) 6.6 Thou/mm3 (1.8-7.7); Neutrophils % (Auto) 63 % (37-80); Nucleated Red Blood Cell # 0.00 Thou/mm3 (0.00-0.00); Nucleated Red Blood Cell % 0 /100 WBC (0); Platelet Count 362 Thou/mm3 (140-440); RDW Standard Deviation 49.9 fL (35.1-43.9); Red Blood Count 3.86 Miln/mm3 (4.50-5.90); White Blood Count 10.4 Thou/mm3 (3.8-10.6)
[2025-03-08 07:00] LABS: Alanine Aminotransferase 27 U/L (10-49); Albumin, Serum 3.8 gm/dL (3.5-5.0); Albumin/Globulin Ratio 1.0 (1.2-2.2); Alkaline Phosphatase 60 U/L (46-116); Anion Gap 2 (7-16); Aspartate Amino Transferase 21 U/L (0-34); BUN/Creatinine Ratio 12 Ratio (12-20); Bilirubin,Total 0.4 mg/dL (0.3-1.2); Blood Urea Nitrogen 11 mg/dL (9-23); Calcium 8.9 mg/dL (8.3-10.6); Calcium (Corrected) 9.1 mg/dL (8.5-10.1); Carbon Dioxide 36.0 mMol/L (20.0-31.0); Chloride 100 mMol/L (98-107); Creatinine (Component) 0.9 mg/dL (0.6-1.3); Estimated Creatinine Clearance 210.7 mL/min (>60); Globulin 3.7 gm/dL (2.3-3.5); Glucose 94 mg/dL (74-106); Magnesium 2.1 mg/dL (1.6-2.6); Osmolality,Calculated 275 (275-295); Potassium 4.8 mMol/L (3.4-5.1); Sodium 138 mMol/L (136-145); Total Protein 7.5 gm/dL (5.7-8.2); Vancomycin,Trough 17.0 mcg/mL (5.0-10.0); eGFR > 60 See Note
[2025-03-08] MEDS: Vancomycin Inj 1,500 MG in SODIUM CHLORIDE 0.9% 500 ML 500 ML 120 MG IV (08:28)
[2025-03-08] MEDS: PANTOPRAZOLE 40 MG TABLET PO (09:28)
--- NOTE | 2025-03-08 11:11 | PC.SS ---
Follow up note: Progress notes indicate that patient will need an o/p sleep study. Patient's last p.c.p. appt with [facility] was a year ago. Patient will need to get re-established with p.c.p. for a follow up appt. to be referred to o/p sleep study.
--- NOTE | 2025-03-08 19:13 | ESDS_ITS ---
<Statement entered by Shahzad Headley MD - 03/09/25 16:52> I have reviewed the note and agree with the resident's assessment & plan with exceptions as below. I have personally reviewed labs, imaging, home meds/prior records, examined the patient, formulated and discussed management plan with the IM team. Shahzad Headley, PGY-2 Internal Medicine Planned Discharge Date 03/08/25 DS: Providers Provider Date of admission: 02/28/25 15:54 Primary care physician: Physician No Primary/Family Admitting Provider: Obdulia Aceves DO Attending Provider on Admission: Wang Hu MD Consults: 03/05/25 22:29 Referral Wound Care Routine Comment: 03/07/25 15:48 Referral Wound Care Routine Comment: 03/08/25 04:33 Referral Nutritional Services Routine Comment: 03/08/25 10:48 Referral OP Wound Healing Dept Routine Comment: Attending Provider on DC: Wang Hu MD Discharging Provider: Wang Hu MD DS: Diagnosis Problem List Completed Was Problem List Reviewed/Reconciled?: Yes Hospital Course Hospital Course Hospital course: Tapan is a 34-year-old male with morbid obesity, HTN, JENY/OHS who was admitted to [facility] on 02/28/2025 for sepsis rule out and RLE cellulitis. Pt had arrived to the ED with a pulse rate 128, temperature 102.3, respiratory rate 21. Labs were significant for WBC 24.4, CRP 4.2, ESR 55, procalcitonin 3.02, lactate 2.6. Venous Doppler showed no evidence of DVT. Blood cultures - no growth after 48hr. CT abdomen and pelvis, CT Rt lower extremity - no significant abnormality. Medicine was consulted and patient was admitted to the floors. Blood cultures had been collected with showed no growth, and a second set of blood cultures were also collected which were negative as well. Pt had initially been started on clear, was upgraded to IV Zosyn (03/04 - 03/08) and vancomycin (03/05 - 03/08) after minimal improvement. Patient continued to improve and was then referred to outpatient wound care. Patient was then discharged with the following instructions: Discharge Instructions: Follow up with your PCP within x1 week of discharge Complete your antibiotic Cefuroxime for 4 days as prescribed Take [place] for your pain as needed I have referred you to [facility] wound [facility], See them upon d/c for dressing changes. [address] [place] [address]. Call [phone] for appointment. Take medicines as prescribed If symptoms worsen: fever, chills, nausea/vomiting, go to your nearest hospital / ED Right lower leg skin infection with blistering: Shower daily. Wash hands with soap and water than cleanse with wound cleanser. Pat dry with gauze. Repeat washing hands with soap and water, apply adaptic over blistering and open wounds. Layer with abd gauze pads. Secure with gauze roll than lisa wrap from base of toes to below the knee. Change once a Daily and as needed for saturating. Elevate extremity above heart level to help with swelling. Problem List: #Sepsis, ruled out #Right lower extremity cellulitis #HTN in the setting of JENY/OHS #JENY/OHS #Morbid obesity Patient seen and care discussed with my attending physician, Dr. Hu, and my senior resident, Dr. Fang Maddox MD PGY-1 Time Spent with Patient Time attestation: Total time spent providing and/or coordinating discharge services: Time spent: Less than 30 minutes Exam Vital Signs Temp Pulse Resp BP Pulse Ox O2 Del Method O2 Flow Rate 96.9 F 100 18 154/86 H 97 Nasal Cannula 7 03/08/25 11:53 03/08/25 11:53 03/08/25 11:53 03/08/25 11:53 03/08/25 11:53 03/08/25 08:00 03/08/25 08:00 FiO2 30 03/06/25 16:00 Narrative Exam General: A&O x3. Awake. Obese HEENT: Normocephalic, atraumatic, mucous membranes moist. Heart: Regular rate and rhythm, no murmurs. Lungs: Clear to auscultation with no wheezing or crackles. Abdomen: Soft, nondistended, nontender, positive bowel sounds. ?No guarding or rebound tenderness. Neurologic: No gross neurological deficit, and patient able to move all 4 extremities. Extremities: Right lower extremity swelling with erythema. B/l chronic venous stasis noted with induration. Skin: No rash or ecchymoses. Discharge Plan Plan Patient Disposition: HOME (Self Care) Patient condition on transfer: Stable Care Plan Goals: Discharge Instructions: Follow up with your PCP within x1 week of discharge Complete your antibiotic Cefuroxime for 4 days as prescribed Take [place] for your pain as needed I have referred you to [facility] wound [facility], See them upon d/c for dressing changes. [address] [place] [address]. Call [phone] for appointment. Take medicines as prescribed If symptoms worsen: fever, chills, nausea/vomiting, go to your nearest hospital / ED Right lower leg skin infection with blistering: Shower daily. Wash hands with soap and water than cleanse with wound cleanser. Pat dry with gauze. Repeat washing hands with soap and water, apply adaptic over blistering and open woun ds. Layer with abd gauze pads. Secure with gauze roll than lisa wrap from base of toes to below the knee. Change once a Daily and as needed for saturating. Elevate extremity above heart level to help with swelling. Prescriptions/Referrals Prescriptions/Med Rec: New cefuroxime axetil 500 mg tablet 500 mg PO BID 4 Days Qty: 8 0RF hydrocodone-acetaminophen 5-325 mg tablet 1 tab PO Q8H MDD 3 tablets PRN (Reason: breakthrough pain) 3 Days Qty: 9 0RF Rx Instructions: Take one tablet by mouth up to three times daily as needed for pain Referrals: No Primary/Family,Physician [Primary Care Provider] - Patient/Caregiver Discharge Instructions Discharge Activity: walk with walker only Education Materials: Nutrition for Wound Healing, Discharge Instructions for Cellulitis, Changing Dressing Dc, Understanding Sepsis, ED Cellulitis Print Language: Greek Stand Alone Forms: Radha Award Info., Patient Portal Info Letter Discharge Order Discharge Orders: Discharge (Routine); Ordered 03/08/25 Ordered By: Shahzad Headley Quality Discharge Quality Measures VTE prophylaxis (Lovenox) Attestestation MD Attestation I attest that I was physically present for the evaluation, physical examination, lab and imaging review of the patient with the residents. I discussed the case with the residents and agree with the findings and plans of care as documented above. Wang Hu MD
== END 2025-03-08 14:16 | disposition home or self-care (01) | DRG 720 ==
LOC: SERX 15:38 → SERHOLD 03-01 06:16 → S3SX 03-01 06:16
PROVIDERS: Nurse Practitioner Primary Care; Admitting Provider Internal Medicine; Emergency Provider Family Medicine; Visit Provider Student in an Organized Health Care Education/Training Program
DX: A41.9 Sepsis, unspecified organism (principal); E66.2 Morbid (severe) obesity with alveolar hypoventilation; Z68.44 Body mass index [BMI] 60.0-69.9, adult; F17.210 Nicotine dependence, cigarettes, uncomplicated; L03.115 Cellulitis of right lower limb; I10 Essential (primary) hypertension; B35.1 Tinea unguium; Z79.899 Other long term (current) drug therapy
CPT/HCPCS: 36415; 71046; 73590; 73700; 73701; 74176; 80048; 80053; 80202; 81001; 83036; 83605; 83735; 84145; 84443; 85025; 85610; 85652; 85730; 86140; 86331; 86635; 87040; 93005; 93225; 93971; 96365; 96366; 96367; 96368; 99285; A4649; J0696; J1171; J1650; J1885; J2543; J3370; J3372; J7030; J7999; Q9967; A9270

== ENCOUNTER → 2025-03-13 | Outpatient (CLI) | payer MEDICAID, SELFPAY | END | disposition home or self-care (01) | LOC: SWHD 08:17 | PROVIDERS: PCP Family Medicine; Referring Provider Family Medicine; Visit Provider Student in an Organized Health Care Education/Training Program | DX: L03.115 Cellulitis of right lower limb (principal); I10 Essential (primary) hypertension; E66.01 Morbid (severe) obesity due to excess calories; G47.30 Sleep apnea, unspecified; M34.9 Systemic sclerosis, unspecified; Z87.891 Personal history of nicotine dependence | CPT/HCPCS: 99213; A9270; G0463 ==

== ENCOUNTER 2025-03-26 09:46 | Emergency (ER) | payer MEDICAID, SELFPAY ==
[2025-03-26 09:47] VITALS: BMI 59.3
[2025-03-26 10:07] VITALS: BP 161/86; PULSE 88; RESP 18; TEMP 36.9; O2SAT 97
--- NOTE | 2025-03-26 10:15 | PD.EDBACK ---
ED Back Injury Pain RME/HPI General Chief Complaint: Back Pain/Injury Stated Complaint: R) SIDE BACK PAIN X 2 DAYS Time Seen by Provider: 03/26/25 09:55 Source: patient Arrival date/time: 03/26/25 09:46 34-year-old male with no known medical history presents to the emergency room with a chief complaint of right-sided flank pain nausea vomiting x 2 days. Mode of arrival: ambulatory Limitations: no limitations Related Data Allergies Allergy/AdvReac Type Severity Reaction Status Date / Time No Known Allergies Allergy Verified 03/26/25 09:49 Review of Systems Review of Systems Systems Reviewed: All systems reviewed, normal except as documented Constitutional Constitutional: Reports system reviewed and no additional complaints, except as documented, Denies fatigue, Denies fever(s), Denies headache(s) and Denies weakness Eyes Eyes: Reports system reviewed and no additional complaints, except as documented, Denies blurry vision and Denies change in vision ENT Ears, Nose, Mouth, and Throat: Reports system reviewed and no additional complaints, except as documented, Denies otalgia, Denies headache(s), Denies nasal congestion, Denies throat swelling and Denies vertigo Cardiovascular Cardiovascular: Reports system reviewed and no additional complaints, except as documented, Denies chest pain, Denies dyspnea and Denies dyspnea on exertion Respiratory Respiratory: Reports system reviewed and no additional complaints, except as documented, Denies chest congestion, Denies cough, Denies dyspnea, Denies dyspnea on exertion and Denies wheezing Gastrointestinal Gastrointestinal: Reports system reviewed and no additional complaints, except as documented, Reports abdominal pain, Reports cramping, Reports nausea and Reports vomiting Genitourinary Genitourinary: Reports system reviewed and no additional complaints, except as documented, Denies dysuria and Denies hematuria Musculoskeletal Musculoskeletal: Reports system reviewed and no additional complaints, except as documented and Reports back pain Integumentary/Breasts Skin/Breast: Reports system reviewed and no additional complaints, except as documented and Denies wounds Neurologic Neurologic: Reports system reviewed and no additional complaints, except as documented, Denies confusion, Denies headache(s), Denies lack of coordination, Denies vertigo and Denies weakness Psychiatric Psychiatric: Reports system reviewed and no additional complaints, except as documented, Denies anxiety, Denies confusion, Denies depression, Denies paranoia, Denies suicidal ideation and Denies tactile hallucinations Endocrine Endocrine: Reports system reviewed and no additional complaints, except as documented and Denies fatigue Hematologic/Lymphatic Hematologic/Lymphatic: Reports system reviewed and no additional complaints, except as documented and Denies lymphadenopathy Allergic/Immunologic Allergic/Immunologic: Reports system reviewed and no additional complaints, except as documented, Denies throat swelling, Denies urticaria and Denies wheezing Past Medical History Past Medical History CARDIAC: Negative Cardiac Disorders or Congestive Heart Failure RESPIRATORY: Positive Asthma; Negative Chronic Obstructive Pulmonary Disease (COPD) GENITOURINARY: Negative Renal Disease ENDOCRINE: Negative Diabetes Mellitus Type 1 or Diabetes Mellitus Type 2 HEMATOLOGIC: Negative Sickle Cell Disease PSYCHO/SOCIAL: Positive Bipolar Disorder and Depression Social History SMOKING STATUS: Former smoker SUBSTANCE USE: does not use ED Exam General Limitations: Present no limitations General appearance: Present alert and in no apparent distress Head Head exam: Present atraumatic Eye Eye exam: Present normal appearance, PERRL and EOMI ENT ENT exam: Present normal exam, normal oropharynx and mucous membranes moist Neck Neck exam: Present normal inspection, full ROM and trachea midline Chest Chest inspection: Present normal inspection and symmetric chest wall rise Respiratory Respiratory exam: Present normal lung sounds bilaterally Cardiovascular Cardiovascular exam: Present regular rate, normal rhythm and normal heart sounds Abdominal Exam Abdominal exam: Present soft, tenderness and normal bowel sounds Abdominal tenderness: Present RLQ, suprapubic and mild Extremities Exam Extremities exam: Present normal inspection and full ROM Back Exam Back exam: Present normal inspection, full ROM and CVA tenderness (R) Neurological Exam Neurological exam: Present alert, oriented X3 and CN II-XII intact Psychiatric Psychiatric exam: Present normal affect and normal mood Skin Skin exam: Present warm, dry, intact and normal color Course Quality Measures none Orders Category Date Time Status CT abdomen pelvis wo con Stat Exams 03/26/25 10:16 Ordered CBC Stat Lab 03/26/25 10:16 Ordered CMP [Comprehensive Metabolic Panel] Stat Lab 03/26/25 10:16 Ordered Lipase Stat Lab 03/26/25 10:16 Ordered UA [Urinalysis] Stat Lab 03/26/25 10:16 Ordered Urine Culture Stat Lab 03/26/25 10:16 Ordered Ketorolac Inj [Toradol Inj] Med 03/26/25 10:18 Once 30 mg IM X1 ONE Ondansetron Odt [Zofran Odt] Med 03/26/25 10:18 Once 4 mg PO X1 ONE Vital Signs Vital signs: Vital Signs Temperature 98.5 F 03/26/25 10:07 Pulse Rate 88 03/26/25 10:07 Respiratory Rate 18 03/26/25 10:07 Blood Pressure 161/86 H 03/26/25 10:07 Pulse Oximetry (%) 97 03/26/25 10:07 Oxygen Delivery Method Room Air 03/26/25 10:07 Back Pain / Injury MDM Narrative MDM Narrative:: 34-year-old male with no known medical history presents to the emergency room with a chief complaint of right-sided flank pain nausea vomiting x 2 days. Patient data External records reviewed:: [facility] previous records Clinical information provided by:: patient Social determinants that could affect healthcare access:: none Patient has the following chronic illnesses:: No chronic illness How is presenting disease/condition affected by chronic disease/condition?: no chronic disease Evaluation data The following diagnostics were reviewed and interpreted by me:: lab results and radiology exam(s) Lab and/or radiology exams considered but not ordered:: Labs and radiology exams considered in order Interpretation Summary: CT abdomen and pelvis- Medications / Prescriptions Medications or Prescriptions considered but not ordered:: Medication given Medication administrations:: Medication given Consultations Consultation(s) initiated? (list below): No Diagnosis Differential diagnosis back pain/injury: strain of lumbar region, renal colic and other Admission Indicated Admission indicated?: not indicated Admission Request Was there a request for admission?: No Disposition Plan Disposition Plan: Discharge Discharge Attestation Discharge Attestation: The patient and all family members were given an opportunity to ask questions and understood the discharge instructions. Discharge instructions specifically effects, indications for sooner follow up or return to the emergency department, and the expected course of current diagnosis. Patient condition: Stable Discharge Plan Patient/Caregiver Discharge Instructions Print Language: Japanese
--- NOTE | 2025-03-26 10:16 | XR_ITS ---
Examination: CT abdomen and pelvis without contrast. Coronal 3-D reconstructions. Sagittal 2-D reconstructions. Date and time of exam:March 26, 2025, 10:58 AM Indications: Right flank pain beginning 2 days ago, history 4 mm right renal calculus on CT stone study March 02, 2025 CTDI: vol (mGy): 28.8 DLP: (mGycm): 1737 Technique: Axial images of the abdomen have been obtained, 3 mm slice thickness Intravenous contrast material has not been administered. Low dose protocols were performed. One or more of the following dose reduction techniques were used; automated exposure control, adjustment of the mA and/or KV according to patient size, use of iterative reconstruction technique. Findings: Mild enlargement cardiac contour Diffuse fatty infiltration throughout the liver. Contracted gallbladder No splenic or pancreatic mass Normal adrenal glands. Mild right hydronephrosis secondary to 5 mm proximal right ureteral calculus Aorta normal size No bowel obstruction No pericecal inflammatory change No bladder calculi Impression: Mild right hydronephrosis secondary to 5 mm proximal right ureteral calculus
[2025-03-26] MEDS: ONDANSETRON ODT 4 MG TABRAP PO (10:23)
[2025-03-26] MEDS: KETOROLAC INJ 60 MG/2 ML VIAL 30 MG IM (10:24)
[2025-03-26 11:49] LABS: Basophils # (Auto) 0.0 Thou/mm3 (0.0-0.2); Basophils % (Auto) 0 % (0-2.5); Eosinophils # (Auto) 0.1 Thou/mm3 (0.0-0.5); Eosinophils % (Auto) 0 % (0-10); Hematocrit 40.0 % (41.0-53.0); Hemoglobin 12.7 g/dL (13.5-16.0); Immature Granulocytes Auto 0.06 Thou/mm3 (0.00-0.00); Lymphocytes # (Auto) 0.9 Thou/mm3 (1.0-4.8); Lymphocytes % (Auto) 7 % (10-50); Mean Corpuscular HGB Conc 31.8 g/dl (31.0-37.0); Mean Corpuscular Hemoglobin 27.9 pg (25.0-35.0); Mean Corpuscular Volume 88 fL (80-100); Monocytes # (Auto) 0.7 Thou/mm3 (0.0-0.8); Monocytes % (Auto) 5 % (0-12); Neutrophils # (Auto) 10.9 Thou/mm3 (1.8-7.7); Neutrophils % (Auto) 87 % (37-80); Nucleated Red Blood Cell # 0.00 Thou/mm3 (0.00-0.00); Nucleated Red Blood Cell % 0 /100 WBC (0); Platelet Count 343 Thou/mm3 (140-440); RDW Standard Deviation 46.1 fL (35.1-43.9); Red Blood Count 4.56 Miln/mm3 (4.50-5.90); White Blood Count 12.5 Thou/mm3 (3.8-10.6)
[2025-03-26 12:08] LABS: Alanine Aminotransferase 24 U/L (10-49); Albumin, Serum 4.3 gm/dL (3.5-5.0); Albumin/Globulin Ratio 0.9 (1.2-2.2); Alkaline Phosphatase 67 U/L (46-116); Anion Gap 9 (7-16); Aspartate Amino Transferase 27 U/L (0-34); BUN/Creatinine Ratio 11 Ratio (12-20); Bilirubin,Total 0.4 mg/dL (0.3-1.2); Blood Urea Nitrogen 12 mg/dL (9-23); Calcium 9.4 mg/dL (8.3-10.6); Calcium (Corrected) 9.4 mg/dL (8.5-10.1); Carbon Dioxide 28.9 mMol/L (20.0-31.0); Chloride 99 mMol/L (98-107); Creatinine (Component) 1.1 mg/dL (0.6-1.3); Estimated Creatinine Clearance 171.8 mL/min (>60); Globulin 5.0 gm/dL (2.3-3.5); Glucose 116 mg/dL (74-106); Lipase 37 U/L (12-53); Osmolality,Calculated 274 (275-295); Potassium 4.9 mMol/L (3.4-5.1); Sodium 137 mMol/L (136-145); Total Protein 9.3 gm/dL (5.7-8.2); eGFR > 60 See Note
[2025-03-26 12:42] LABS: Collection Type, Urine Clean Catch
[2025-03-26 12:56] LABS: Bacteria,Urine 3+; Bilirubin,Urine Negative (Negative); Blood,Urine 3+ (Negative); Color,Urine Yellow (Lt Yel-Yel); Glucose, Urine Negative (Negative); Ketones,Urine Negative (Negative); Leukocyte Esterase,Urine Positive (Negative); Nitrite,Urine Positive (Negative); PH,Urine 6.0 (5.0-7.0); Protein,Urine 2+ (Neg - Trace); RBC,Urine 63 /hpf (0-3); Specific Gravity,Urine 1.034 (1.001-1.035); Squamous Epithelial Cell,Urine 2 /hpf (0-5); Transitional Epi Cells,Urine 2 /hpf (0-5); Urobilinogen,Urine Negative mg/dL (0.0-1.0); WBC,Urine 787 /hpf (0-5)
[2025-03-26 13:13] LABS: Clarity,Urine Turbid (Clear/Hazy)
[2025-03-26 13:36] VITALS: BP 174/116; PULSE 88; RESP 20; TEMP 36.8; O2SAT 95
--- NOTE | 2025-03-26 13:37 | PD.EDRME ---
Rapid Medical Screening Exam E Arrival date/time: 03/26/25 09:46 34-year-old male with no known medical history presents to the emergency room with a chief complaint of right-sided flank pain nausea vomiting x 2 days. I have greeted and performed a focused initial assessment of this patient. A comprehensive ED assessment and evaluation of the patient, analysis of all test results, and completion of the medical decision making process will be conducted by additional ED providers. Chief Complaint: Back Pain/Injury Time Seen by Provider: 03/26/25 09:55 Vital signs: Vital Signs Temperature 98.5 F 03/26/25 10:07 Pulse Rate 88 03/26/25 10:07 Respiratory Rate 18 03/26/25 10:07 Blood Pressure 161/86 H 03/26/25 10:07 Pulse Oximetry (%) 97 03/26/25 10:07 Oxygen Delivery Method Room Air 03/26/25 10:07 Vital signs reviewed by provider: Yes
[2025-03-26 14:20] VITALS: BP 175/84; PULSE 88; RESP 16; TEMP 36.7; O2SAT 100
--- NOTE | 2025-03-26 14:22 | EDNOTE_ITS ---
ED Back Injury Pain RME/HPI General Chief Complaint: Back Pain/Injury Stated Complaint: R) SIDE BACK PAIN X 2 DAYS Time Seen by Provider: 03/26/25 09:55 Arrival date/time: 03/26/25 09:46 Limitations: no limitations RME / HPI RME / HPI Narrative: 03/26/25 09:46 34-year-old male with no known medical history presents to the emergency room with a chief complaint of right-sided flank pain nausea vomiting x 2 days. He denies any chronic medical illness but states he has been recently treated for a right sided lower leg cellulitis. He denies any history of hypertension or diabetes. No past surgeries. He has no other acute complaints or concerns. Related Data Previous Rx's ?Medication ?Instructions ?Recorded cephalexin 500 mg capsule 500 mg PO Q6H #28 ea 5 naproxen 500 mg tablet 500 mg PO BID #14 tabs 03/26 tamsulosin 0.4 mg capsule (Flomax) 0.4 mg PO Q24H #30 caps 03/26/25 Allergies Allergy/AdvReac Type Severity Reaction Status Date / Time No Known Allergies Allergy Verified 03/26/25 09:49 Review of Systems Review of Systems Systems Reviewed: All systems reviewed, normal except as documented ED Exam General Limitations: Present no limitations General appearance: Present alert and in no apparent distress Head Head exam: Present atraumatic Eye Eye exam: Present normal appearance, PERRL and EOMI ENT ENT exam: Present normal exam, normal oropharynx and mucous membranes moist Neck Neck exam: Present normal inspection, full ROM and trachea midline Chest Chest inspection: Present normal inspection and symmetric chest wall rise Respiratory Respiratory exam: Present normal lung sounds bilaterally Cardiovascular Cardiovascular exam: Present regular rate, normal rhythm and normal heart sounds Abdominal Exam Abdominal exam: Present soft and tenderness; Absent guarding Extremities Exam Extremities exam: Present normal inspection and full ROM Back Exam Back exam: Present normal inspection and full ROM; Absent CVA tenderness (R) or CVA tenderness (L) Neurological Exam Neurological exam: Present alert and oriented X3 Psychiatric Psychiatric exam: Present normal affect and normal mood Skin Skin exam: Present warm, dry, intact and normal color Course Course Course Narrative: Took call from [facility], report was provided Case was discussed with transfer line. They will review the patient's case and call back. 16:40 call from [facility], they review the patient's chart, have their urologist review his case, and call us back. Quality Measures none Orders Category Date Time Status Insert IV NOW Care 03/26/25 14:18 Active Referral - Statement Services Representative Stat Cons 03/26/25 14:21 Active Transfer to another facility [Transfer/Discharge] Stat Discharge 03/26/25 14:[address] abdomen pelvis wo con Stat Exams 03/26/25 10:16 Completed CBC Stat Lab 03/26/25 11:31 Completed CMP [Comprehensive Metabolic Panel] Stat Lab 03/26/25 11:31 Completed Lipase Stat Lab 03/26/25 11:31 Completed UA [Urinalysis] Stat Lab 03/26/25 12:30 Completed Urine Culture Stat Lab 03/26/25 12:30 Received Ketorolac Inj [Toradol Inj] Med 03/26/25 10:18 Discontinued 30 mg IM X1 ONE Morphine Inj Med 03/26/25 14:18 Discontinued 5 mg IVP X1 ONE Ondansetron Inj [Zofran Inj] Med 03/26/25 14:18 Discontinued 4 mg IVP X1 ONE Ondansetron Odt [Zofran Odt] Med 03/26/25 10:18 Discontinued 4 mg PO X1 ONE Tamsulosin HCl [Flomax] Med 03/26/25 14:26 Discontinued 0.4 mg PO X1 ONE cefTRIAXone [Rocephin] 2 gm Med 03/26/25 14:22 Discontinued SODIUM CHLORIDE 0.9% (Popper) [Ns 0.9% (P)] 50 ml IV X1 Vital Signs Vital signs: Vital Signs Temperature 98.5 F 03/26/25 10:07 Pulse Rate 88 03/26/25 10:07 Respiratory Rate 18 03/26/25 10:07 Blood Pressure 161/86 H 03/26/25 10:07 Pulse Oximetry (%) 97 03/26/25 10:07 Oxygen Delivery Method Room Air 03/26/25 10:07 Back Pain / Injury MDM Narrative MDM Narrative:: 03/26/25 09:46 34-year-old male with no known medical history presents to the emergency room with a chief complaint of right-sided flank pain nausea vomiting x 2 days. He denies any chronic medical illness but states he has been recently treated for a right sided lower leg cellulitis. He denies any history of hypertension or diabetes. No past surgeries. He has no other acute complaints or concerns. On exam, patient is uncomfortable appearing but nontoxic-appearing. Vital signs are stable. He has mild to moderate left-sided abdominal tenderness. No CVA te nderness bilaterally. He has a very mild leukocytosis of 12.5K, hemoglobin 12.6, hematocrit is 40.0. Glucose is 116, creatinine is unremarkable at 1.1. Urinalysis reveals 63 leukocytes, 787. CT reveals a proximal 5 mm right-sided urethral stone with mild hydronephrosis. .Dr Vazquez in [place], [place] was contacted. Patient does not to be transferred this time however they will follow-up with him closely. They will contact him this week to schedule close follow-up appoint. Patient will be discharged with a prescription of Flomax, Keflex, and naproxen. He agrees to follow-up with urology as planned. If he does not hear from them within the next 24 to 40 hours he will contact them for an appointment. He agrees to have a low threshold for return here for any worsening changes as needed Patient data External records reviewed:: None Clinical information provided by:: patient Social determinants that could affect healthcare access:: none Patient has the following chronic illnesses:: N/A How is presenting disease/condition affected by chronic disease/condition?: uneffected by Evaluation data The following diagnostics were reviewed and interpreted by me:: lab results (Mild leukocytosis, findings consistent with UTI.) and radiology exam(s) (Right- sided, proximal 5 mm urethral stone with mild hydro) Lab and/or radiology exams considered but not ordered:: n/a Interpretation Summary: n/a Medications / Prescriptions Medications or Prescriptions considered but not ordered:: n/a Medication administrations:: Medication Administration History Discontinued Medications Ceftriaxone Sodium 2 gm/ (Sodium Chloride) 50 mls @ 100 mls/hr IV X1 ONE Stop: 03/26/25 14:51 Last Infusion: 03/26/25 15:14 Dose: Infused Documented By: Admin: 03/26/25 14:44 Dose: 100 mls/hr Documented By: PEDRO LUIS Ketorolac Tromethamine (Ketorolac Inj 60 Mg/2 Ml Vial) 30 mg IM X1 ONE Stop: 03/26/25 10:19 Last Admin: 03/26/25 10:24 Dose: 30 mg Documented By: HERIBERTO Morphine Sulfate (Morphine Sulf Inj 10 Mg/Ml Vial) 5 mg IVP X1 ONE Stop: 03/26/25 14:19 Last Admin: 03/26/25 14:42 Dose: 5 mg Documented By: PEDRO LUIS Ondansetron HCl (Ondansetron Odt 4 Mg Tabrap) 4 mg PO X1 ONE; Protocol Stop: 03/26/25 10:19 Last Admin: 03/26/25 10:23 Dose: 4 mg Documented By: HERIBERTO Ondansetron HCl (Ondansetron Inj 2 Mg/Ml Inj 2 Ml) 4 mg IVP X1 ONE; Protocol Stop: 03/26/25 14:19 Last Admin: 03/26/25 14:43 Dose: 4 mg Documented By: PEDRO LUIS Tamsulosin HCl (Tamsulosin Hcl 0.4 Mg Capsule) 0.4 mg PO X1 ONE Stop: 03/26/25 14:27 Last Admin: 03/26/25 14:43 Dose: 0.4 mg Documented By: PEDRO LUIS See above Consultations Consultation(s) initiated? (list below): Yes Diagnosis Most likely diagnosis given after review of the tests above:: Kidney stone, UTI Admission Indicated Admission indicated?: indicated Admission Request Was there a request for admission?: Yes Admission Attestation Admission request attestation: Discussed case with [] from Hospitalist service regarding admission. Discussed patients ED course, exam findings, labs, and radiology results. The Hospitalist [agrees,declines] to accept the patient for admission. Disposition Plan Disposition Plan: Transfer Discharge Plan Plan Patient Disposition: HOME (Self Care) Patient condition on transfer: Stable Prescriptions/Referrals Prescriptions/Med Rec: New cephalexin 500 mg capsule 500 mg PO Q6H Qty: 28 0RF tamsulosin [Flomax] 0.4 mg capsule 0.4 mg PO Q24H Qty: 30 0RF naproxen 500 mg tablet 500 mg PO BID Qty: 14 0RF Referrals: No Primary/Family,Physician [Primary Care Provider] - In 1 week Problem List Clinical Impression: Ureterolithiasis, Acute UTI Patient/Caregiver Discharge Instructions Education Materials: Understanding Urinary Tract ..., Preventing Kidney Stones Additional Instructions: - Increase oral hydration. - Use the provided antibiotic as prescribed. -We also sent you prescriptions for Flomax and naproxen. - You will need to follow-up with urology. Their address is below. If you do not hear from them in 1 to 2 days please give them a call. Dr Vazquez [address] - Return to the emergency room at anytime for any worsening changes. Print Language: American Stand Alone Forms: Radha Award Info., Patient Portal Info Letter
--- NOTE | 2025-03-26 14:38 | PC.CC ---
Addendum entered by Mary Batista RN 03/26/25 17:23: Ilsa updated. Informed him information below can be copy and pasted with dc instructions. Addendum entered by Mary Batista RN 03/26/25 17:21: 1714: Lynda call back, Dr Vazquez rec: 1-2 week f/u at the [address] [facility] should call patient in 1 to 2 days to schedule an appt. If patient has not heard back, please call the clinic to schedule the appointment. [id number]: spoke to Lynda at [facility], she request to speak to Ilsa, call initiated. She will have Dr. Vazquez Urologist review and call back with determination. Addendum entered by Mary Batista RN 03/26/25 14:43: transfer request initiated w/ TC. Per Blanca, nurse will reach out when clinicals are reviewed. Original Note: received transfer request for urology for 5mm stone, UTI. clinicals and imaging sent to and [facility]. Clinicals sent to [facility]. Called [facility], left VM. Called [facility], spoke to Estuardo, transfer request initiated. Per Estuardo nurse will reach out when clinicals are reviewed.
[2025-03-26] MEDS: MORPHINE SULF INJ 10 MG/ML VIAL 5 MG IVP (14:42)
[2025-03-26] MEDS: TAMSULOSIN HCL 0.4 MG CAPSULE PO (14:43)
[2025-03-26] MEDS: ONDANSETRON INJ 2 MG/ML INJ 2 ML 4 MG IVP (14:43)
[2025-03-26] MEDS: cefTRIAXone 2 GM in SODIUM CHLORIDE 0.9% (Popper) 50 ML IV (14:44)
[2025-03-26 16:23] VITALS: BP 155/104; PULSE 95; RESP 20; TEMP 36.9; O2SAT 92
== END 2025-03-26 18:05 | disposition home or self-care (01) ==
PROVIDERS: Nurse Practitioner Family; Emergency Provider Emergency Medicine
DX: N13.2 Hydronephrosis with renal and ureteral calculous obstruction (principal); N39.0 Urinary tract infection, site not specified
CPT/HCPCS: 36415; 74176; 80053; 81001; 83690; 85025; 87077; 87086; 87186; 96365; 96372; 96375; 99284; J0696; J1885; J2270; J2405; J7050; Q0162; A9270